=== PATIENT | female | born 1940 | race Caucasian/White ===

== ENCOUNTER 2017-04-08 12:58 | Inpatient (IN) | payer MEDICARE, OTHER ==
--- NOTE | 2017-04-08 13:00 | EDM.PDOC ---
ED HPI GENERAL MEDICAL PROBLEM - General Stated Complaint: SOB Time Seen by Provider: 04/08/17 12:58 Source of Information: Reports: Patient, Family (PV) History Limitations: Reports: Altered Mental Status, Physical Impairment - History of Present Illness INITIAL COMMENTS - FREE TEXT/NARRATIVE: 76 y.o.w f came to the with SO, PV, due to SOB. Pt received ALB inhaler at home with minimal improvement. Pt has multiple medical issues including A fib, she not on coumadine. Sedentary lifestyle. poor historian. No N/V/D. Pt is too week to ambulate. 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 (see below) (albuterol) Bilateral Feet Pain Score (Numeric/FACES): 7 - Related Data Allergies Allergy/AdvReac Type Severity Reaction Status Date / Time cephalexin Allergy Confusion Verified 04/08/17 13:05 clonidine Allergy Nausea Verified 04/08/17 13:05 diclofenac [From Voltaren] Allergy Paralysis Verified 04/08/17 13:05 naproxen [From Naprosyn] Allergy Paralysis Verified 04/08/17 13:05 Home Meds: Home Meds ALPRAZolam [Xanax] 0.25 mg PO BID PRN 05/05/16 [History] Albuterol [Ventolin HFA] 2 puff IH Q4H PRN 05/05/16 [History] Diazepam [Valium] 5 mg PO BEDTIME 05/05/16 [History] Hydroxychloroquine Sulfate [Plaquenil] 200 mg PO BEDTIME 05/05/16 [History] Isosorbide Mononitrate [Imdur] 60 mg PO DAILY@1000 05/05/16 [History] Lisinopril 40 mg PO DAILY 05/05/16 [History] Multivit-Min/Iron Fum/Folic AC [Qvyrf-Ohvmjze-Glcfpcwf Tablet] 1 tab PO DAILY@ 1000 05/05/16 [History] Nebivolol [Bystolic] 20 mg PO BEDTIME 05/05/16 [History] Omeprazole Magnesium [Prilosec Otc] 20 mg PO DAILY 05/05/16 [History] Sertraline [Zoloft] 25 mg PO DAILY 05/05/16 [History] predniSONE [Prednisone] 5 mg PO DAILY 05/05/16 [History] rOPINIRole [Requip] 0.25 mg PO BEDTIME 05/05/16 [History] Aspirin [Halfprin] 81 mg PO DAILY #90 tab.ec 05/07/16 [Rx] Loperamide [Imodium] 2 mg PO Q4H PRN #60 cap 05/07/16 [Rx] amLODIPine [Norvasc] 10 mg PO BEDTIME #90 tab 05/07/16 [Rx] Albuterol/Ipratropium [DuoNeb 3.0-0.5 MG/3 ML] 3 ml INH Q4HR PRN 04/08/17 [ History] Ca/D3/Mag#11/Zinc/Hot Dip Plating Supervisor/[place]/Bor [Caltrate 600+D Plus Tablet] 1 tab PO DAILY 04/08 [History] Desoximetasone [Desoximetasone] 1 applic TOP BID 04/08/17 [History] Hydrochlorothiazide 25 mg PO DAILY 04/08/17 [History] Hydrocodone/Acetaminophen [Hydrocodon-Acetaminophen 5-325] 1 tab PO Q4HR PRN [History] Hydrocortisone [Procto-Med Hc] 1 applic RECTAL BID PRN 04/08/17 [History] Menthol [Biofreeze] 118 ml TP BID 04/08/17 [History] Nystatin [Nystatin] 1 applic TOP ASDIRECTED 04/08/17 [History] Trolamine Salicylate [Aspercreme] 1 applic TP QID 04/08/17 [History] Past Medical History HEENT History: Reports: Impaired Vision, Other (See Below) Other HEENT History: 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, 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 Cardiovascular History: Reports: Afib, High Cholesterol, Hypertension, SOB on Exertion Respiratory History: Reports: Asthma, Sleep Apnea, SOB, Other (See Below) Other Respiratory History: wears c pap at night Gastrointestinal History: Reports: Hemorrhoids Genitourinary History: Reports: UTI, Recurrent 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 OB/BYN History: 3 children Musculoskeletal History: Reports: Arthritis, Osteoarthritis, RA, Other (See Below) Other Musculoskeletal History: rods in back neck all the way down her back Neurological History: Reports: Vertigo Psychiatric History: Reports: Anxiety, Depression Endocrine/Metabolic History: Reports: Osteoporosis Hematologic History: Reports: Blood Transfusion(s) Immunologic History: Reports: None Oncologic (Cancer) History: Reports: None Dermatologic History: Reports: None - Infectious Disease History Infectious Disease History: Reports: Chicken Pox, Influenza, Measles, MRSA, Pertussis (Whooping Cough), Shingles, Other (See Below) Other Infectious Disease History: MRSA in knee in 2013, DCed precautions before discharge after being there 1 1/2 months - Past Surgical History HEENT Surgical History: Reports: Adenoidectomy, Cataract Surgery, Tonsillectomy Neurological Surgical History: Reports: Other (See Below) Musculoskeletal Surgical History: Reports: Knee Replacement Social & Family History - Family History HEENT: Reports: None Cardiac: Reports: Heart Failure, Hypertension, VA Respiratory: Reports: Asthma GI: Reports: None : Reports: None OBGYN: Reports: Musculoskeletal: Reports: Arthritis, Osteoarthritis Neurological: Reports: Migraines Psychiatric: Reports: None Endocrine/Metabolic: Reports: Diabetes, type II, Hyperparathyroidism Hematologic: Reports: None Immunologic: Reports: None Dermatologic: Reports: None Oncologic: Reports: Uterine - Tobacco Use Smoking Status *Q: Former Smoker Years of Tobacco use: 3 Packs/Tins Daily: 0.2 Used Tobacco, but Quit: Yes Month Tobacco Last Used: 1976 Second Hand Smoke Exposure: No - Caffeine Use Caffeine Use: Reports: Coffee, Soda - Recreational Drug Use Recreational Drug Use: No - Living Situation & Occupation Living situation: Reports: , with Spouse ED ROS GENERAL - Review of Systems Review Of Systems: Unable To Obtain (HPI was given by her ) ED EXAM, GENERAL - Physical Exam Exam: See Below Exam Limited By: Physical Impairment General Appearance: Alert, Mild Distress, Obese Eye Exam: Bilateral Eye: Normal Inspection Ears: Normal External Exam Ear Exam: Bilateral Ear: Auricle Normal Nose: Normal Inspection Throat/Mouth: Normal Inspection, Normal Lips, No Airway Compromise Head: Atraumatic, Normocephalic Neck: Normal Inspection, Supple, Non-Tender, Full Range of Motion Respiratory/Chest: Respiratory Distress, Decreased Breath Sounds, Wheezing, Prolonged Expiration, Other (dullness to percussion left lower lung) Cardiovascular: Irregularly Irregular GI/Abdominal: Normal Bowel Sounds, Soft, Non-Tender (Female) Exam: Deferred Rectal (Female) Exam: Deferred Back Exam: Normal Inspection, Full Range of Motion Extremities: Other (left sided chronic leg edema) Neurological: Alert, CN II-XII Intact Psychiatric: Normal Affect Skin Exam: Warm, Dry, Intact, Normal Color Lymphatic: No Adenopathy EKG INTERPRETATION EKG Date: 04/08/17 Time: 14:45 Rhythm: A-Fib Rate (Beats/Min): 79 [place]: Normal P-Wave: Absent QRS: Normal ST-T: Normal QT: Normal Comparison: NA - No Prior EKG Course - Vital Signs Text/Narrative:: 76 y.o.w f came to the with SO, PV, due to SOB. Pt received ALB inhaler at home with minimal improvement. Pt has multiple medical issues including A fib, she not on coumadine. Sedentary lifestyle. poor historian. No N/V/D. Pt is too week to ambulate. No C/P BP 176/69 Pulse ox 91 % on RA pulse 76 (afib) Temp 37.1 PE: Morbid obese 76 Y.O.W.F with SOB. Poor insp effort exp wheezes, left leg edema, s/p left elbow surgery Imaging: CXR CHF, L eft pleural effusion, U/S left leg neg for DVT Labs: Pro BNP 1832 UA pos for UTI WBC 9.7 HGB 9.6 Na 140 K 3.8 BUN 22 Cr. 0.0 GFR > 60 Impression: CHF. Prolinged QTc (650), UTI, Pleural effusion (L). Sleep apnea. leg edema left leg (doppler US was neg fro DVT) Multiple medical Issues, FULL CODE. Tx: Duoneb. Lasix, Bactrim DS Reexam: Improved 4.00 pm Consultation: Dr. Bravo, Hospitalist: Accepted the pt for admission Plan: Admit to [facility]. Last Recorded V/S: Last Vital Signs Temp 36.9 C 04/08/17 23:57 Pulse 76 04/08/17 23:59 Resp 17 04/08/17 23:57 BP 152/87 H 04/08/17 23:57 Pulse Ox 96 04/08/17 23:59 - Orders/Labs/Meds Orders: Active Orders 24 hr Category Date Time Status Cardiac Education [RC] Click to Edit Care 04/08/17 17:27 Active Cardiac Monitoring [RC] 08,16,00 Care 04/08/17 16:07 Active Communication Order [RC] ASDIRECTED Care 04/08/17 17:27 Active Height and Weight [RC] 06 Care 04/08/17 17:26 Active Intake and Output [RC] 04,08,12,16,20,00 Care 04/08/17 15:58 Active Notify Provider [RC] PRN Care 04/08/17 17:27 Active Oxygen Therapy [RC] PRN Care 04/08/17 15:55 Active Pulse Oximetry [RC] PRN Care 04/08/17 15:58 Active RT Aerosol Therapy [RC] ASDIRECTED Care 04/08/17 14:27 Active RT Incentive Spirometry [RC] Q2HWA Care 04/08/17 17:26 Active Up With Assistance [RC] ASDIRECTED Care 04/08/17 15:55 Active Vital Signs [RC] 04,08,12,16,20,00 Care 04/08/17 15:55 Active OT Evaluation and Treatment [CONS] Routine Cons 04/08/17 17:26 Active PT Evaluation and Treatment [CONS] Routine Cons 04/08/17 15:55 Active 2 Gram Sodium Diet [DIET] Diet 04/08/17 Breakfast Active Fluid Restriction [DIET] Diet 04/08/17 Dinner Active Heart Healthy Diet [DIET] Diet 04/08/17 Breakfast Ordered Chest 1V Frontal [CR] Stat Exams 04/08/17 15:38 Taken VL Duplex Lwr Ext Veins Ltd Lt [US] Stat Exams 04/08/17 13:35 Taken BASIC METABOLIC PANEL,BMP [CHEM] AM Lab 04/09/17 05:11 Ordered CULTURE URINE [RM] Stat Lab 04/08/17 13:55 Received ALPRAZolam [Xanax] Med 04/08/17 17:43 Active 0.25 mg PO BID PRN Acetaminophen/HYDROcodone [[place] 325-5 MG] Med 04/08/17 17:43 Active 1 tab PO Q4H PRN Albuterol/Ipratropium [DuoNeb 3.0-0.5 MG/3 ML] Med 04/08/17 21:00 Active 3 ml NEB QIDRT Aspirin [Halfprin] Med 04/09/17 09:00 Active 81 mg PO DAILY Diazepam [Valium] Med 04/08/17 21:00 Active 5 mg PO BEDTIME Docusate Sodium [Colace] Med 04/08/17 15:55 Active 100 mg PO BID PRN Furosemide [Lasix] Med 04/09/17 05:00 Active 40 mg IVPUSH Q12H Hydrochlorothiazide Med 04/09/17 09:00 Active 25 mg PO DAILY Hydroxychloroquine [Plaquenil] Med 04/08/17 21:00 Active 200 mg PO BEDTIME Isosorbide Mononitrate [Imdur] Med 04/09/17 10:00 Active 60 mg PO DAILY@1000 Lisinopril [Prinivil] Med 04/09/17 09:00 Active 40 mg PO DAILY Nebivolol [Bystolic] Med 04/08/17 21:00 Active 20 mg PO BEDTIME Nystatin [Nystop] Med 04/08/17 17:45 Active 0 gm TOP ASDIRECTED Sertraline [Zoloft] Med 04/09/17 09:00 Active 25 mg PO DAILY Sodium Chloride 0.9% [Saline Flush] Med 04/08/17 15:55 Active 10 ml FLUSH ASDIRECTED PRN Sodium Chloride 0.9% [Saline Flush] Med 04/08/17 16:00 Active 10 ml FLUSH ASDIRECTED PRN Sulfamethoxazole/Trimethoprim [Septra DS] Med 04/09/17 09:00 Active 1 tab PO BID amLODIPine [Norvasc] Med 04/08/17 21:00 Active 10 mg PO BEDTIME methylPREDNISolone Sod Succ [Solu-MEDROL] Med 04/08/17 17:30 Active 62.5 mg IV Q6H Antiembolic Hose [OM.PC] Per Unit Routine Oth 04/08/17 17:36 Ordered Blood Culture x2 Reflex Set [OM.PC] Urgent Oth 04/08/17 17:27 Ordered Peripheral IV Insertion Adult [OM.PC] Routine Oth 04/08/17 15:55 Ordered Saline Lock Insert [OM.PC] Routine Oth 04/08/17 16:00 Ordered Resuscitation Status Routine Resus Stat 04/08/17 15:55 Ordered EKG 12 Lead [EK] Routine Ther 04/08/17 14:35 Ordered Medication Orders Hydrocodone Bitart/Acetaminophen ([place] 325-5 Mg) 1 tab PO Q4H PRN PRN Reason: Pain Albuterol/Ipratropium (Duoneb 3.0-0.5 Mg/3 Ml) 3 ml NEB QIDRT [facility] Last Admin: 04/08/17 20:50 Dose: 3 ml Alprazolam (Xanax) 0.25 mg PO BID PRN PRN Reason: Anxiety Amlodipine Besylate (Norvasc) 10 mg PO BEDTIME [facility] Last Admin: 04/08/17 20:59 Dose: 10 mg Aspirin (Halfprin) 81 mg PO DAILY [facility] Diazepam (Valium.) 5 mg PO BEDTIME [facility] Last Admin: 04/08/17 20:50 Dose: 5 mg Docusate Sodium (Colace) 100 mg PO BID PRN PRN Reason: Constipation Furosemide (Lasix) 40 mg IVPUSH Q12H [facility] Hydrochlorothiazide (Hydrochlorothiazide) 25 mg PO DAILY [facility] Hydroxychloroquine Sulfate (Plaquenil) 200 mg PO BEDTIME [facility] Last Admin: 04/08/17 21:30 Dose: 200 mg Isosorbide Mononitrate (Imdur) 60 mg PO DAILY@1000 [facility] Lisinopril (Prinivil) 40 mg PO DAILY [facility] Methylprednisolone Sodium Succinate (Solu-Medrol) 62.5 mg IV Q6H [facility] Last Admin: 04/09/17 00:21 Dose: 62.5 mg Admin: 04/08/17 18:56 Dose: 62.5 mg Nebivolol (Bystolic) 20 mg PO BEDTIME [facility] Last Admin: 04/08/17 21:29 Dose: 20 mg Nystatin (Nystop) 0 gm TOP ASDIRECTED [facility] Sertraline HCl (Zoloft) 25 mg PO DAILY [facility] Sodium Chloride (Saline Flush) 10 ml FLUSH ASDIRECTED PRN PRN Reason: Keep Vein Open Last Admin: 04/08/17 19:01 Dose: 10 ml Admin: 04/08/17 16:58 Dose: 10 ml Admin: 04/08/17 16:01 Dose: 10 ml Sodium Chloride (Saline Flush) 10 ml FLUSH ASDIRECTED PRN PRN Reason: Keep Vein Open Last Admin: 04/09/17 00:21 Dose: 10 ml Trimethoprim/Sulfamethoxazole (Septra Ds) 1 tab PO BID [facility] Labs: Laboratory Tests 04/08/17 04/08/17 04/08/17 Range/Units 13:30 13:30 13:30 WBC 9.4 (4.5-12.0) X10-3/uL RBC 4.27 (3.23-5.20) x10(6)uL Hgb 9.7 L (11.5-15.5) g/dL Hct 31.4 (30.0-51.3) % MCV 73.4 L (80-96) fL MCH 22.6 L (27.7-33.6) pg MCHC 30.8 L (32.2-35.4) g/dL RDW 16.1 H (11.5-15.5) % Plt Count 238 (125-369) X10(3)uL MPV 7.6 (7.4-10.4) fL Add Manual Diff Yes Neutrophils % (Manual) 87 H (46-82) % Lymphocytes % (Manual) 6 L (13-37) % Monocytes % (Manual) 7 (4-12) % Hypochromasia Few Anisocytosis Few Microcytosis Moderate H PT 11.4 H (8.7-11.1) INR 1.13 (0.89-1.13) Sodium 140 (135-145) mmol/L Potassium 3.8 (3.5-5.3) mmol/L Chloride 102 (100-110) mmol/L Carbon Dioxide 29 (21-32) mmol/L BUN 22 H (7-18) mg/dL Creatinine 0.7 (0.55-1.02) mg/dL Est Cr Clr Drug Dosing 55.68 mL/min Estimated GFR (MDRD) > 60 (>60) BUN/Creatinine Ratio 31.4 H (9-20) Glucose 158 H (80-116) mg/dL Calcium 9.6 (8.6-10.2) mg/dL Creatine Kinase (60-160) IU/L Troponin I (<0.017-0.056) ng/mL NT-Pro-B Natriuret Pep (<=450) pg/mL Urine Color (YELLOW) Urine Appearance (CLEAR) Urine pH (5.0-6.5) Ur Specific [place] (1.010-1.025) Urine Protein (NEGATIVE) mg/dL Urine Glucose (UA) (NEGATIVE) mg/dL Urine Ketones (NEGATIVE) mg/dL Urine Occult Blood (NEGATIVE) Urine Nitrite (NEGATIVE) Urine Bilirubin (NEGATIVE) Urine Urobilinogen (NEGATIVE) mg/dL Ur Leukocyte Esterase (NEGATIVE) Urine RBC (0) Urine WBC (0) Ur Squamous Epith Cells (NS,R,O) Amorphous Sediment Urine Bacteria (NS) 04/08/17 04/08/17 04/08/17 Range/Units 13:30 13:30 13:30 WBC (4.5-12.0) X10-3/uL RBC (3.23-5.20) x10(6)uL Hgb (11.5-15.5) g/dL Hct (30.0-51.3) % MCV (80-96) fL MCH (27.7-33.6) pg MCHC (32.2-35.4) g/dL RDW (11.5-15.5) % Plt Count (125-369) X10(3)uL MPV (7.4-10.4) fL Add Manual Diff Neutrophils % (Manual) (46-82) % Lymphocytes % (Manual) (13-37) % Monocytes % (Manual) (4-12) % Hypochromasia Anisocytosis Microcytosis PT (8.7-11.1) INR (0.89-1.13) Sodium (135-145) mmol/L Potassium (3.5-5.3) mmol/L Chloride (100-110) mmol/L Carbon Dioxide (21-32) mmol/L BUN (7-18) mg/dL Creatinine (0.55-1.02) mg/dL Est Cr Clr Drug Dosing mL/min Estimated GFR (MDRD) (>60) BUN/Creatinine Ratio (9-20) Glucose (80-116) mg/dL Calcium (8.6-10.2) mg/dL Creatine Kinase 46 L (60-160) IU/L Troponin I < 0.017 L (<0.017-0.056) ng/mL NT-Pro-B Natriuret Pep 1859 H* (<=450) pg/mL Urine Color (YELLOW) Urine Appearance (CLEAR) Urine pH (5.0-6.5) Ur Specific [place] (1.010-1.025) Urine Protein (NEGATIVE) mg/dL Urine Glucose (UA) (NEGATIVE) mg/dL Urine Ketones (NEGATIVE) mg/dL Urine Occult Blood (NEGATIVE) Urine Nitrite (NEGATIVE) Urine Bilirubin (NEGATIVE) Urine Urobilinogen (NEGATIVE) mg/dL Ur Leukocyte Esterase (NEGATIVE) Urine RBC (0) Urine WBC (0) Ur Squamous Epith Cells (NS,R,O) Amorphous Sediment Urine Bacteria (NS) 04/08/17 Range/Units 13:55 WBC (4.5-12.0) X10-3/uL RBC (3.23-5.20) x10(6)uL Hgb (11.5-15.5) g/dL Hct (30.0-51.3) % MCV (80-96) fL MCH (27.7-33.6) pg MCHC (32.2-35.4) g/dL RDW (11.5-15.5) % Plt Count (125-369) X10(3)uL MPV (7.4-10.4) fL Add Manual Diff Neutrophils % (Manual) (46-82) % Lymphocytes % (Manual) (13-37) % Monocytes % (Manual) (4-12) % Hypochromasia Anisocytosis Microcytosis PT (8.7-11.1) INR (0.89-1.13) Sodium (135-145) mmol/L Potassium (3.5-5.3) mmol/L Chloride (100-110) mmol/L Carbon Dioxide (21-32) mmol/L BUN (7-18) mg/dL Creatinine (0.55-1.02) mg/dL Est Cr Clr Drug Dosing mL/min Estimated GFR (MDRD) (>60) BUN/Creatinine Ratio (9-20) Glucose (80-116) mg/dL Calcium (8.6-10.2) mg/dL Creatine Kinase (60-160) IU/L Troponin I (<0.017-0.056) ng/mL NT-Pro-B Natriuret Pep (<=450) pg/mL Urine Color Yellow (YELLOW) Urine Appearance Clear (CLEAR) Urine pH 6.0 (5.0-6.5) Ur Specific [place] 1.015 (1.010-1.025) Urine Protein Negative (NEGATIVE) mg/dL Urine Glucose (UA) Normal (NEGATIVE) mg/dL Urine Ketones Negative (NEGATIVE) mg/dL Urine Occult Blood Negative (NEGATIVE) Urine Nitrite Negative (NEGATIVE) Urine Bilirubin Negative (NEGATIVE) Urine Urobilinogen Normal (NEGATIVE) mg/dL Ur Leukocyte Esterase Moderate H (NEGATIVE) Urine RBC 0-5 (0) Urine WBC 5-10 (0) Ur Squamous Epith Cells Few H (NS,R,O) Amorphous Sediment Moderate Urine Bacteria Moderate H (NS) Meds: Medications Generic Name Dose Route Start Last Admin Trade Name Freq PRN Reason Stop Dose Admin Hydrocodone Bitart/Acetaminophen 1 tab 04/08/17 17:43 [place] 325-5 Mg PO Q4H PRN Pain Albuterol/Ipratropium 3 ml 04/08/17 21:00 04/08/17 20:50 Duoneb 3.0-0.5 Mg/3 Ml NEB 3 ml QIDRT [facility] Administration Alprazolam 0.25 mg 04/08/17 17:43 Xanax PO BID PRN Anxiety Amlodipine Besylate 10 mg 04/08/17 21:00 04/08/17 20:59 Norvasc PO 10 mg BEDTIME [facility] Administration Aspirin 81 mg 04/09/17 09:00 Halfprin PO DAILY [facility] Diazepam 5 mg 04/08/17 21:00 04/08/17 20:50 Valium. PO 5 mg BEDTIME [facility] Administration Docusate Sodium 100 mg 04/08/17 15:55 Colace PO BID PRN Constipation Furosemide 40 mg 04/09/17 05:00 Lasix IVPUSH Q12H [facility] Hydrochlorothiazide 25 mg 04/09/17 09:00 Hydrochlorothiazide PO DAILY [facility] Hydroxychloroquine Sulfate 200 mg 04/08/17 21:00 04/08/17 21:30 Plaquenil PO 200 mg BEDTIME [facility] Administration Isosorbide Mononitrate 60 mg 04/09/17 10:00 Imdur PO DAILY@1000 [facility] Lisinopril 40 mg 04/09/17 09:00 Prinivil PO DAILY [facility] Methylprednisolone Sodium Succinate 62.5 mg 04/08/17 17:30 04/09/17 00:21 Solu-Medrol IV 62.5 mg Q6H [facility] Administration Nebivolol 20 mg 04/08/17 21:00 04/08/17 21:29 Bystolic PO 20 mg BEDTIME [facility] Administration Nystatin 0 gm 04/08/17 17:45 Nystop TOP ASDIRECTED [facility] Sertraline HCl 25 mg 04/09/17 09:00 Zoloft PO DAILY [facility] Sodium Chloride 10 ml 04/08/17 16:00 04/08/17 19:01 Saline Flush FLUSH 10 ml ASDIRECTED PRN Administration Keep Vein Open Sodium Chloride 10 ml 04/08/17 15:55 04/09/17 00:21 Saline Flush FLUSH 10 ml ASDIRECTED PRN Administration Keep Vein Open Trimethoprim/Sulfamethoxazole 1 tab 04/09/17 09:00 Septra Ds PO BID [facility] Discontinued Medications Generic Name Dose Route Start Last Admin Trade Name Freq PRN Reason Stop Dose Admin Albuterol/Ipratropium 3 ml 04/08/17 14:27 04/08/17 14:37 Duoneb 3.0-0.5 Mg/3 Ml NEB 04/08/17 14:28 3 ml ONETIME ONE Administration Furosemide 20 mg 04/08/17 16:02 04/08/17 16:53 Lasix IVPUSH 04/08/17 16:03 20 mg ONETIME ONE Administration Levofloxacin 500 mg 04/08/17 14:45 04/08/17 14:52 Levaquin PO 04/08/17 14:46 Not Given ONETIME STA Methylprednisolone Sodium Succinate Confirm 04/08/17 18:52 Solu-Medrol Administered 04/08/17 18:53 Dose 40 mg .ROUTE .STK-MED ONE Ondansetron HCl 4 mg 04/08/17 15:55 Zofran IV Q4H PRN Nausea/Vomiting Trimethoprim/Sulfamethoxazole 1 tab 04/08/17 14:49 04/08/17 14:53 Septra Ds PO 04/08/17 14:50 1 tab ONETIME ONE Administration Departure - Departure Time of Disposition: 17:00 Disposition: Refer to Observation Condition: Fair Clinical Impression: CHF (congestive heart failure) Qualifiers: Congestive heart failure chronicity: acute on chronic - Discharge Information - My Orders Last 24 Hours: My Active Orders 04/08/17 13:35 VL Duplex Lwr Ext Veins Ltd Lt [US] Stat 04/08/17 13:55 CULTURE URINE [RM] Stat 04/08/17 14:27 RT Aerosol Therapy [RC] ASDIRECTED 04/08/17 14:35 EKG 12 Lead [EK] Routine 04/08/17 15:38 Chest 1V Frontal [CR] Stat 04/08/17 15:55 Oxygen Therapy [RC] PRN Up With Assistance [RC] ASDIRECTED Vital Signs [RC] 04,08,12,16,20,00 PT Evaluation and Treatment [CONS] Routine Docusate Sodium [Colace] 100 mg PO BID PRN Sodium Chloride 0.9% [Saline Flush] 10 ml FLUSH ASDIRECTED PRN Peripheral IV Insertion Adult [OM.PC] Routine Resuscitation Status Routine 04/08/17 15:58 Intake and Output [RC] 04,08,12,16,20,00 Pulse Oximetry [RC] PRN 04/08/17 16:00 Sodium Chloride 0.9% [Saline Flush] 10 ml FLUSH ASDIRECTED PRN Saline Lock Insert [OM.PC] Routine 04/08/17 16:07 Cardiac Monitoring [RC] 08,16,00 04/08/17 Breakfast Heart Healthy Diet [DIET] - Assessment/Plan Last 24 Hours: My Active Orders 04/08/17 13:35 VL Duplex Lwr Ext Veins Ltd Lt [US] Stat 04/08/17 13:55 CULTURE URINE [RM] Stat 04/08/17 14:27 RT Aerosol Therapy [RC] ASDIRECTED 04/08/17 14:35 EKG 12 Lead [EK] Routine 04/08/17 15:38 Chest 1V Frontal [CR] Stat 04/08/17 15:55 Oxygen Therapy [RC] PRN Up With Assistance [RC] ASDIRECTED Vital Signs [RC] 04,08,12,16,20,00 PT Evaluation and Treatment [CONS] Routine Docusate Sodium [Colace] 100 mg PO BID PRN Sodium Chloride 0.9% [Saline Flush] 10 ml FLUSH ASDIRECTED PRN Peripheral IV Insertion Adult [OM.PC] Routine Resuscitation Status Routine 04/08/17 15:58 Intake and Output [RC] 04,08,12,16,20,00 Pulse Oximetry [RC] PRN 04/08/17 16:00 Sodium Chloride 0.9% [Saline Flush] 10 ml FLUSH ASDIRECTED PRN Saline Lock Insert [OM.PC] Routine 04/08/17 16:07 Cardiac Monitoring [RC] 08,16,04/08/17 Breakfast Heart Healthy Diet [DIET]
[2017-04-08] MEDS ORDERED: Albuterol/Ipratropium 3.0-0.5 MG/3 ML Neb Soln NEB ONE (14:27)
[2017-04-08] MEDS ORDERED: Levofloxacin 250 MG Tab PO STA (14:45)
[2017-04-08] MEDS ORDERED: Sulfamethoxazole/Trimethoprim 800-160 MG Tab PO ONE (14:49)
[2017-04-08] MEDS ORDERED: Sodium Chloride 0.9% 10 ML Syringe FLUSH PRN (15:55)
[2017-04-08] MEDS ORDERED: Ondansetron 4 MG/2 ML SDV IV PRN (15:55)
[2017-04-08] MEDS ORDERED: Docusate Sodium 100 MG Cap PO PRN (15:55)
[2017-04-08] MEDS: Sodium Chloride 0.9% 10 ML Syringe FLUSH PRN ×3 (16:01→19:01)
[2017-04-08] MEDS ORDERED: Furosemide 20 MG/2 ML VIAL IVPUSH ONE (16:02)
[2017-04-08] MEDS ORDERED: ALPRAZolam 0.25 MG Tab PO PRN (17:43)
[2017-04-08] MEDS ORDERED: Acetaminophen/HYDROcodone 325-5 MG Tab PO PRN (17:43)
[2017-04-08] MEDS ORDERED: Nystatin Topical Powder 15 GM Bottle TOP SCH (17:45)
--- NOTE | 2017-04-08 17:57 | PCM.HP ---
H&P History of Present Illness - General Date of Service: 04/08/17 Admit Problem/Dx: Admission Diagnosis/Problem Admission Diagnosis/Problem CHF, Congestive heart failure - History of Present Illness Initial Comments - Free Text/Narative: 76-year-old female with multiple comorbidities having increasing dyspnea and shortness of breath at rest along with wheezing for the last 5 days. She tried using her inhalers and nebulizer she does have asthma as well as combined severe COPD but this did not help. She uses CPAP at night but is not on chronic O2 therapy. She is chronically on low-dose prednisone 5 mg daily. She has not been treated outpatient but she has received her influenza vaccination. She has atrial fibrillation and congestive heart failure and has noted some increase in lower extremity edema. She denies any fevers or chills, no sputum production or cough. She's not had any chest pain or pressure no shoulder or neck or jaw pain. She denies any palpitations headache or lightheadedness. She denies any nasal congestion sore throat or joint swelling. She's not had any nausea or vomiting denies abdominal pain, constipation or diarrhea. She denies any dysuria or hematuria but does have incontinence. Denies any foul odor to urine or discoloration. Denies any decreased urination. Denies flank pain. She does have skin knees chronically treated with nystatin powder under both breasts and inguinal folds. Denies any breaks in skin or falls. She does have some underlying cognitive impairment and relies on her to keep track of her medications dosing and timing. I have seen her in the past and taking care of her in the clinic therefore her history comes from her, past medical records along with . Bilateral Feet Pain Score (Numeric/FACES): 7 - Related Data Allergies/Adverse Reactions: Allergies Allergy/AdvReac Type Severity Reaction Status Date / Time cephalexin Allergy Confusion Verified 04/08/17 13:05 clonidine Allergy Nausea Verified 04/08/17 13:05 diclofenac [From Voltaren] Allergy Paralysis Verified 04/08/17 13:05 naproxen [From Naprosyn] Allergy Paralysis Verified 04/08/17 13:05 Home Medications: Home Meds ALPRAZolam [Xanax] 0.25 mg PO BID PRN 05/05/16 [History] Albuterol [Ventolin HFA] 2 puff IH Q4H PRN 05/05/16 [History] Diazepam [Valium] 5 mg PO BEDTIME 05/05/16 [History] Hydroxychloroquine Sulfate [Plaquenil] 200 mg PO BEDTIME 05/05/16 [History] Isosorbide Mononitrate [Imdur] 60 mg PO DAILY@1000 05/05/16 [History] Lisinopril 40 mg PO DAILY 05/05/16 [History] Multivit-Min/Iron Fum/Folic AC [Ywzvv-Oreclgx-Slrwygay Tablet] 1 tab PO DAILY@ 1000 05/05/16 [History] Nebivolol [Bystolic] 20 mg PO BEDTIME 05/05/16 [History] Omeprazole Magnesium [Prilosec Otc] 20 mg PO DAILY 05/05/16 [History] Sertraline [Zoloft] 25 mg PO DAILY 05/05/16 [History] predniSONE [Prednisone] 5 mg PO DAILY 05/05/16 [History] rOPINIRole [Requip] 0.25 mg PO BEDTIME 05/05/16 [History] Aspirin [Halfprin] 81 mg PO DAILY #90 tab.ec 05/07/16 [Rx] Loperamide [Imodium] 2 mg PO Q4H PRN #60 cap 05/07/16 [Rx] amLODIPine [Norvasc] 10 mg PO BEDTIME #90 tab 05/07/16 [Rx] Albuterol/Ipratropium [DuoNeb 3.0-0.5 MG/3 ML] 3 ml INH Q4HR PRN 04/08/17 [ History] Ca/D3/Mag#11/Zinc/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[place]/Bor [Caltrate 600+D Plus Tablet] 1 tab PO DAILY 04/08 [History] Desoximetasone [Desoximetasone] 1 applic TOP BID 04/08/17 [History] Hydrochlorothiazide 25 mg PO DAILY 04/08/17 [History] Hydrocodone/Acetaminophen [Hydrocodon-Acetaminophen 5-325] 1 tab PO Q4HR PRN [History] Hydrocortisone [Procto-Med Hc] 1 applic RECTAL BID PRN 04/08/17 [History] Menthol [Biofreeze] 118 ml TP BID 04/08/17 [History] Nystatin [Nystatin] 1 applic TOP ASDIRECTED 04/08/17 [History] Trolamine Salicylate [Aspercreme] 1 applic TP QID 04/08/17 [History] Past Medical History HEENT History: Reports: Impaired Vision, Other (See Below) Other HEENT History: 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, 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 Cardiovascular History: Reports: Afib, High Cholesterol, Hypertension, SOB on Exertion Respiratory History: Reports: Asthma, Sleep Apnea, SOB, Other (See Below) Other Respiratory History: wears c pap at night Gastrointestinal History: Reports: Hemorrhoids Genitourinary History: Reports: UTI, Recurrent 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 OB/BYN History: 3 children Musculoskeletal History: Reports: Arthritis, Osteoarthritis, RA, Other (See Below) Other Musculoskeletal History: rods in back neck all the way down her back Neurological History: Reports: Vertigo Psychiatric History: Reports: Anxiety, Depression Endocrine/Metabolic History: Reports: Osteoporosis Hematologic History: Reports: Blood Transfusion(s) Immunologic History: Reports: None Oncologic (Cancer) History: Reports: None Dermatologic History: Reports: None - Infectious Disease History Infectious Disease History: Reports: Chicken Pox, Influenza, Measles, MRSA, Pertussis (Whooping Cough), Shingles, Other (See Below) Other Infectious Disease History: MRSA in knee in 2013, DCed precautions before discharge after being there 1 1/2 months - Past Surgical History HEENT Surgical History: Reports: Adenoidectomy, Cataract Surgery, Tonsillectomy Neurological Surgical History: Reports: Other (See Below) Musculoskeletal Surgical History: Reports: Knee Replacement Social & Family History - Family History Family Medical History: Noncontributory HEENT: Reports: None Cardiac: Reports: Heart Failure, Hypertension, [place] Respiratory: Reports: Asthma GI: Reports: None : Reports: None OBGYN: Reports: Musculoskeletal: Reports: Arthritis, Osteoarthritis Neurological: Reports: Migraines Psychiatric: Reports: None Endocrine/Metabolic: Reports: Diabetes, type II, Hyperparathyroidism Hematologic: Reports: None Immunologic: Reports: None Dermatologic: Reports: None Oncologic: Reports: Uterine - Tobacco Use Smoking Status *Q: Former Smoker Years of Tobacco use: 3 Packs/Tins Daily: 0.2 Used Tobacco, but Quit: Yes Month Tobacco Last Used: 1976 Second Hand Smoke Exposure: No - Caffeine Use Caffeine Use: Reports: Coffee, Soda Other Caffeine Use: a little - Recreational Drug Use Recreational Drug Use: No - Living Situation & Occupation Living situation: Reports: , with Spouse H&P Review of Systems - Review of Systems: Review Of Systems: ROS reveals no pertinent complaints other than HPI. Exam - Exam Exam: See Below - Vital Signs Vital Signs: Last Vital Signs Temp 98.3 F 04/08/17 16:15 Pulse 75 04/08/17 16:15 Resp 18 04/08/17 16:15 BP 176/96 H 04/08/17 16:15 Pulse Ox 91 L 04/08/17 16:15 Weight: 89.176 kg - Exam General: Alert, Oriented, Cooperative HEENT: Conjunctiva Clear, Hearing Intact, Mucosa Moist & [place] Neck: Trachea Midline. No: JVD Lungs: Normal Respiratory Effort, Decreased Breath Sounds (Left lower lobe), Rales (Bilateral lower lobes), Wheezing (Expiratory central) Cardiovascular: Regular Rate, Irregular Rhythm, Other (At this time unable to appreciate any significant murmurs) GI/Abdominal Exam: Normal Bowel Sounds, Soft, Non-Tender, Hernia (Small 1 cm umbilical hernia nonincarcerated also left abdominal wall diastases roughly 3 cm x 3 cm palpable.) (Female) Exam: Normal External Exam Extremities: Other (She has lower extremity edema at the knees roughly 1+ bilateral and symmetric. She has numerous skin discoloration secondary to minocycline in the past. No active joint redness tenderness or swelling. There is no calf tenderness negative Homans. Capillary refill less than 2 seconds bilateral. No focal deficits neurologically.) Neuro Extensive - Mental Status: Normal Mood/Affect Psychiatric: Anxious (Minimal anxiety) - Patient Data Lab Results Last 24 hrs: Laboratory Tests 04/08/17 04/08/17 04/08/17 Range/Units 13:30 13:30 13:30 WBC 9.4 (4.5-12.0) X10-3/uL RBC 4.27 (3.23-5.20) x10(6)uL Hgb 9.7 L (11.5-15.5) g/dL Hct 31.4 (30.0-51.3) % MCV 73.4 L (80-96) fL MCH 22.6 L (27.7-33.6) pg MCHC 30.8 L (32.2-35.4) g/dL RDW 16.1 H (11.5-15.5) % Plt Count 238 (125-369) X10(3)uL MPV 7.6 (7.4-10.4) fL Add Manual Diff Yes Neutrophils % (Manual) 87 H (46-82) % Lymphocytes % (Manual) 6 L (13-37) % Monocytes % (Manual) 7 (4-12) % Hypochromasia Few Anisocytosis Few Microcytosis Moderate H PT 11.4 H (8.7-11.1) INR 1.13 (0.89-1.13) Sodium 140 (135-145) mmol/L Potassium 3.8 (3.5-5.3) mmol/L Chloride 102 (100-110) mmol/L Carbon Dioxide 29 (21-32) mmol/L BUN 22 H (7-18) mg/dL Creatinine 0.7 (0.55-1.02) mg/dL Est Cr Clr Drug Dosing 55.68 mL/min Estimated GFR (MDRD) > 60 (>60) BUN/Creatinine Ratio 31.4 H (9-20) Glucose 158 H (80-116) mg/dL Calcium 9.6 (8.6-10.2) mg/dL Creatine Kinase (60-160) IU/L Troponin I (<0.017-0.056) ng/mL NT-Pro-B Natriuret Pep (<=450) pg/mL Urine Color (YELLOW) Urine Appearance (CLEAR) Urine pH (5.0-6.5) Ur Specific Moran (1.010-1.025) Urine Protein (NEGATIVE) mg/dL Urine Glucose (UA) (NEGATIVE) mg/dL Urine Ketones (NEGATIVE) mg/dL Urine Occult Blood (NEGATIVE) Urine Nitrite (NEGATIVE) Urine Bilirubin (NEGATIVE) Urine Urobilinogen (NEGATIVE) mg/dL Ur Leukocyte Esterase (NEGATIVE) Urine RBC (0) Urine WBC (0) Ur Squamous Epith Cells (NS,R,O) Amorphous Sediment Urine Bacteria (NS) 04/08/17 04/08/17 04/08/17 Range/Units 13:30 13:30 13:30 WBC (4.5-12.0) X10-3/uL RBC (3.23-5.20) x10(6)uL Hgb (11.5-15.5) g/dL Hct (30.0-51.3) % MCV (80-96) fL MCH (27.7-33.6) pg MCHC (32.2-35.4) g/dL RDW (11.5-15.5) % Plt Count (125-369) X10(3)uL MPV (7.4-10.4) fL Add Manual Diff Neutrophils % (Manual) (46-82) % Lymphocytes % (Manual) (13-37) % Monocytes % (Manual) (4-12) % Hypochromasia Anisocytosis Microcytosis PT (8.7-11.1) INR (0.89-1.13) Sodium (135-145) mmol/L Potassium (3.5-5.3) mmol/L Chloride (100-110) mmol/L Carbon Dioxide (21-32) mmol/L BUN (7-18) mg/dL Creatinine (0.55-1.02) mg/dL Est Cr Clr Drug Dosing mL/min Estimated GFR (MDRD) (>60) BUN/Creatinine Ratio (9-20) Glucose (80-116) mg/dL Calcium (8.6-10.2) mg/dL Creatine Kinase 46 L (60-160) IU/L Troponin I < 0.017 L (<0.017-0.056) ng/mL NT-Pro-B Natriuret Pep 1859 H* (<=450) pg/mL Urine Color (YELLOW) Urine Appearance (CLEAR) Urine pH (5.0-6.5) Ur Specific Moran (1.010-1.025) Urine Protein (NEGATIVE) mg/dL Urine Glucose (UA) (NEGATIVE) mg/dL Urine Ketones (NEGATIVE) mg/dL Urine Occult Blood (NEGATIVE) Urine Nitrite (NEGATIVE) Urine Bilirubin (NEGATIVE) Urine Urobilinogen (NEGATIVE) mg/dL Ur Leukocyte Esterase (NEGATIVE) Urine RBC (0) Urine WBC (0) Ur Squamous Epith Cells (NS,R,O) Amorphous Sediment Urine Bacteria (NS) 04/08/17 Range/Units 13:55 WBC (4.5-12.0) X10-3/uL RBC (3.23-5.20) x10(6)uL Hgb (11.5-15.5) g/dL Hct (30.0-51.3) % MCV (80-96) fL MCH (27.7-33.6) pg MCHC (32.2-35.4) g/dL RDW (11.5-15.5) % Plt Count (125-369) X10(3)uL MPV (7.4-10.4) fL Add Manual Diff Neutrophils % (Manual) (46-82) % Lymphocytes % (Manual) (13-37) % Monocytes % (Manual) (4-12) % Hypochromasia Anisocytosis Microcytosis PT (8.7-11.1) INR (0.89-1.13) Sodium (135-145) mmol/L Potassium (3.5-5.3) mmol/L Chloride (100-110) mmol/L Carbon Dioxide (21-32) mmol/L BUN (7-18) mg/dL Creatinine (0.55-1.02) mg/dL Est Cr Clr Drug Dosing mL/min Estimated GFR (MDRD) (>60) BUN/Creatinine Ratio (9-20) Glucose (80-116) mg/dL Calcium (8.6-10.2) mg/dL Creatine Kinase (60-160) IU/L Troponin I (<0.017-0.056) ng/mL NT-Pro-B Natriuret Pep (<=450) pg/mL Urine Color Yellow (YELLOW) Urine Appearance Clear (CLEAR) Urine pH 6.0 (5.0-6.5) Ur Specific Moran 1.015 (1.010-1.025) Urine Protein Negative (NEGATIVE) mg/dL Urine Glucose (UA) Normal (NEGATIVE) mg/dL Urine Ketones Negative (NEGATIVE) mg/dL Urine Occult Blood Negative (NEGATIVE) Urine Nitrite Negative (NEGATIVE) Urine Bilirubin Negative (NEGATIVE) Urine Urobilinogen Normal (NEGATIVE) mg/dL Ur Leukocyte Esterase Moderate H (NEGATIVE) Urine RBC 0-5 (0) Urine WBC 5-10 (0) Ur Squamous Epith Cells Few H (NS,R,O) Amorphous Sediment Moderate Urine Bacteria Moderate H (NS) Result Diagrams: 04/08/17 13:30 04/08/17 13:30 Imaging Impressions Last 24 hrs: Chest x-ray does show left lower lobe effusion when compared to prior. She does have increase cephalization do not notice any focal infiltrate however official radiologic read is pending. No clinical signs of pneumonia at this time. EKG INTERPRETATION EKG Date: 04/08/17 Rhythm: A-Fib QRS: Normal ST-T: Normal QT: Prolonged Comparison: No Change *Q Meaningful Use (ADM) - VTE *Q VTE Criteria *Q: VTE Pharmacological Contraindications *Q: Risk of Bleeding - Stroke *Q Stroke Criteria *Q: - AMI *Q AMI Criteria *Q: - Problem List (1) Acute on chronic congestive heart failure SNOMED Code(s): 30454595 ICD Code: I50.9 - HEART FAILURE, UNSPECIFIED Status: Acute Current Visit : Yes Qualifiers: Congestive heart failure type: unspecified congestive heart failure type Qualified Code(s): I50.9 - Heart failure, unspecified (2) Pleural effusion, left SNOMED Code(s): 58172183 ICD Code: J90 - PLEURAL EFFUSION, NOT ELSEWHERE CLASSIFIED Status: Acute Current Visit: Yes (3) COPD with exacerbation SNOMED Code(s): 102990261967667 ICD Code: J44.1 - CHRONIC OBSTRUCTIVE PULMONARY DISEASE W (ACUTE) EXACERBATION Status: Acute Current Visit: Yes (4) UTI (urinary tract infection), bacterial SNOMED Code(s): 431585286 ICD Code: N39.0 - URINARY TRACT INFECTION, SITE NOT SPECIFIED; A49.9 - BACTERIAL INFECTION, UNSPECIFIED Status: Acute Priority: High Current Visit: Yes (5) Atrial fibrillation SNOMED Code(s): 82744958 ICD Code: I48.91 - UNSPECIFIED ATRIAL FIBRILLATION Status: Chronic Current Visit: Yes Qualifiers: Atrial fibrillation type: chronic Qualified Code(s): I48.2 - Chronic atrial fibrillation (6) COPD, severe SNOMED Code(s): 935484496 ICD Code: J44.9 - CHRONIC OBSTRUCTIVE PULMONARY DISEASE, UNSPECIFIED Status : Chronic Priority: High Current Visit: Yes (7) Current chronic use of systemic steroids SNOMED Code(s): 878661206, 965079292, 258234604 ICD Code: Z79.52 - CORRECTION (CURRENT) USE OF SYSTEMIC STEROIDS Status: Chronic Current Visit: Yes (8) Anemia of chronic disease SNOMED Code(s): 699758417 ICD Code: D63.8 - ANEMIA IN OTHER CHRONIC DISEASES CLASSIFIED ELSEWHERE Status: Chronic Current Visit: Yes (9) Impaired mobility SNOMED Code(s): 57436085 ICD Code: Z74.09 - OTHER REDUCED MOBILITY Status: Acute Priority: High Current Visit: Yes (10) Rheumatoid arthritis SNOMED Code(s): 83833828 ICD Code: M06.9 - RHEUMATOID ARTHRITIS, UNSPECIFIED Status: Chronic Priority: High Current Visit: Yes Qualifiers: Rheumatoid arthritis location: multiple sites Rheumatoid factor presence: with rheumatoid factor Qualified Code(s): M05.79 - Rheumatoid arthritis with rheumatoid factor of multiple sites without organ or systems involvement (11) Hypertension SNOMED Code(s): 21968557 ICD Code: I10 - ESSENTIAL (PRIMARY) HYPERTENSION Status: Chronic Current Visit: Yes Qualifiers: Hypertension type: unspecified secondary hypertension Qualified Code(s): I15.9 - Secondary hypertension, unspecified; I15 - Secondary hypertension (12) Chronic congestive heart failure SNOMED Code(s): 19691457 ICD Code: I50.9 - HEART FAILURE, UNSPECIFIED Status: Chronic Priority: High Current Visit: No Qualifiers: Congestive heart failure type: combined Qualified Code(s): I50.42 - Chronic combined systolic (congestive) and diastolic (congestive) heart failure (13) Osteoarthritis SNOMED Code(s): 189305291 ICD Code: M19.90 - UNSPECIFIED OSTEOARTHRITIS, UNSPECIFIED SITE Status: Chronic Priority: High Current Visit: No Qualifiers: Osteoarthritis location: multiple joints Osteoarthritis type: primary Qualified Code(s): M15.0 - Primary generalized (osteo)arthritis (14) Chronic back pain greater than 3 months duration SNOMED Code(s): 930789634 ICD Code: M54.9 - DORSALGIA, UNSPECIFIED; G89.29 - OTHER CHRONIC PAIN Status: Chronic Current Visit: No Problem List Initiated/Reviewed/Updated: Yes Orders Last 24hrs: Active Orders 24 hr Category Date Time Status Cardiac Education [RC] Click to Edit Care 04/08/17 17:27 Ordered Cardiac Monitoring [RC] .As Directed Care 04/08/17 16:07 Active Communication Order [RC] ASDIRECTED Care 04/08/17 17:27 Ordered Height and Weight [RC] DAILY Care 04/08/17 17:26 Ordered Notify Provider [RC] PRN Care 04/08/17 17:27 Ordered RT Incentive Spirometry [RC] Q2HWA Care 04/08/17 17:26 Ordered OT Evaluation and Treatment [CONS] Routine Cons 04/08/17 17:26 Ordered 2 Gram Sodium Diet [DIET] Diet 04/08/17 Breakfast Ordered Fluid Restriction [DIET] Diet 04/08/17 Dinner Ordered BASIC METABOLIC PANEL,BMP [CHEM] AM Lab 04/09/17 05:11 Ordered ALPRAZolam [Xanax] Med 04/08/17 17:43 Ordered 0.25 mg PO BID PRN Acetaminophen/HYDROcodone [[place] 325-5 MG] Med 04/08/17 17:43 Ordered 1 tab PO Q4HR PRN Albuterol/Ipratropium [DuoNeb 3.0-0.5 MG/3 ML] Med 04/08/17 21:00 Ordered 3 ml NEB QIDRT Aspirin [Halfprin] Med 04/09/17 09:00 Ordered 81 mg PO DAILY Diazepam [Valium] Med 04/08/17 21:00 Ordered 5 mg PO BEDTIME Furosemide [Lasix] Med 04/09/17 05:00 Ordered 40 mg IVPUSH Q12H Hydrochlorothiazide Med 04/09/17 09:00 Ordered 25 mg PO DAILY Hydroxychloroquine [Plaquenil] Med 04/08/17 21:00 Ordered 200 mg PO BEDTIME Isosorbide Mononitrate [Imdur] Med 04/09/17 10:00 Ordered 60 mg PO DAILY@1000 Lisinopril [Prinivil] Med 04/09/17 09:00 Ordered 40 mg PO DAILY Nebivolol [Bystolic] Med 04/08/17 21:00 Ordered 20 mg PO BEDTIME Nystatin [Nystop] Med 04/08/17 17:45 Ordered 1 applic TOP ASDIRECTED Sertraline [Zoloft] Med 04/09/17 09:00 Ordered 25 mg PO DAILY Sodium Chloride 0.9% [Saline Flush] Med 04/08/17 16:00 Active 10 ml FLUSH ASDIRECTED PRN Sulfamethoxazole/Trimethoprim [Septra DS] Med 04/09/17 09:00 Ordered 1 each PO BID amLODIPine [Norvasc] Med 04/08/17 21:00 Ordered 10 mg PO BEDTIME methylPREDNISolone Sod Succ [Solu-MEDROL] Med 04/08/17 17:30 Ordered 62.5 mg IV Q6H Antiembolic Hose [OM.PC] Per Unit Routine Oth 04/08/17 17:36 Ordered Blood Culture x2 Reflex Set [OM.PC] Urgent Oth 04/08/17 17:27 Ordered Saline Lock Insert [OM.PC] Routine Oth 04/08/17 16:00 Ordered Medication Orders Hydrocodone Bitart/Acetaminophen ([place] 325-5 Mg) 1 tab PO Q4HR PRN PRN Reason: Pain Albuterol/Ipratropium (Duoneb 3.0-0.5 Mg/3 Ml) 3 ml NEB QIDRT ROQUE Alprazolam (Xanax) 0.25 mg PO BID PRN PRN Reason: Anxiety Amlodipine Besylate (Norvasc) 10 mg PO BEDTIME ROQUE Docusate Sodium (Colace) 100 mg PO BID PRN PRN Reason: Constipation Methylprednisolone Sodium Succinate (Solu-Medrol) 62.5 mg IV Q6H ROQUE Nystatin (Nystop) gm TOP ASDIRECTED ROQUE Sodium Chloride (Saline Flush) 10 ml FLUSH ASDIRECTED PRN PRN Reason: Keep Vein Open Last Admin: 04/08/17 16:58 Dose: 10 ml Admin: 04/08/17 16:01 Dose: 10 ml Sodium Chloride (Saline Flush) 10 ml FLUSH ASDIRECTED PRN PRN Reason: Keep Vein Open Assessment/Plan Comment:: She presents with COPD exacerbation along with pulmonary edema and left pleural effusion which is minimal. She also has a acute UTI. We'll start her on Bactrim DS both prophylactically for the long regarding the COPD as well as to treat UTI. Culture her urine. Keep her on telemetry as she does have a history of atrial fibrillation along with QT prolongation in the addition of antibiotics and diuretics pose a potential risk for cardiac electrical activity. We will get her started on steroid bursting IV hold her oral dose. DuoNeb's 4 times a day and when necessary as well as incentive spirometry. She will continue with her CPAP at night which is being brought from home. Lasix IV with strict ins and outs and daily weights. Will hold off on a Barrientos catheter at this time. We' ll have PT and OT working with her for strengthening as well as ADLs she does have left elbow surgical repair injury for which she is wearing a posterior splint. Will use compression stockings for DVT prophylaxis at this time. Going to hold off on a PPI due to increased risk of aspiration with use. Will fluid restrict to 1500 mL. No free water. Heart healthy low-sodium diet. Anticipate discharge in the next 2-3 days.
[2017-04-08] MEDS ORDERED: methylPREDNISolone Sodium Succinate 40 MG/1 ML SDV ONE (18:52)
[2017-04-08] MEDS: methylPREDNISolone Sodium Succinate 40 MG/1 ML SDV IV SCH (18:56)
[2017-04-08] MEDS: Albuterol/Ipratropium 3.0-0.5 MG/3 ML Neb Soln NEB SCH (20:50)
[2017-04-08] MEDS: Diazepam 5 MG Tab PO SCH (20:50)
[2017-04-08] MEDS: amLODIPine 10 MG Tab PO SCH (20:59)
[2017-04-08] MEDS: Hydroxychloroquine 200 MG Tab PO SCH (21:30)
[2017-04-09] MEDS: methylPREDNISolone Sodium Succinate 40 MG/1 ML SDV IV SCH ×3 (00:21→13:18)
[2017-04-09] MEDS ORDERED: Furosemide 40 MG/4 ML VIAL IVPUSH SCH (05:00)
[2017-04-09] MEDS: Sodium Chloride 0.9% 10 ML Syringe FLUSH PRN (05:51)
[2017-04-09] MEDS: Albuterol/Ipratropium 3.0-0.5 MG/3 ML Neb Soln NEB SCH ×4 (09:04→20:02)
--- NOTE | 2017-04-09 09:32 | PCM.PN ---
- General Info Date of Service: 04/09/17 Subjective Update: She and her are both in the room today. She sitting up in wheelchair smiling no acute respiratory distress. She looks much improved. No audible wheezing with normal respiratory effort. She would like to go home today. There' ve been no events overnight. Again she denies any fevers or chills, no sputum production or cough. She admits to some expiratory wheezing intermittently but much improved. She's not had any chest pain or pressure no shoulder or neck or jaw pain. She denies any palpitations headache or lightheadedness. She denies any nasal congestion sore throat or joint swelling. She's not had any nausea or vomiting denies abdominal pain, constipation or diarrhea. She denies any dysuria or hematuria but does have incontinence. Denies any foul odor to urine or discoloration. Denies any decreased urination. Functional Status: Reports: Pain Controlled, Tolerating Diet, Urinating, Incentive Spirometry (Back up to baseline of 700.) - Review of Systems Systems Review Comment:: Pertinent positives and negatives relevant to today's visit please see history of present illness - Patient Data Vitals - Most Recent: Last Vital Signs Vital Signs - 24 hr 04/08/17 04/08/17 04/08/17 13:07 14:37 15:55 Temperature [ Axillary] Temperature [ 98.8 F Oral] Pulse, Peripheral Pulse, 72 Peripheral [ Right Pulse Oximetry] Respiratory 25 H Rate Blood Pressure Blood Pressure 166/77 H [Right Upper Arm] O2 Sat by Pulse 98 Oximetry O2 Sat by Pulse Oximetry [CPAP ] O2 Sat by Pulse 96 91 L Oximetry [Room Air] 04/08/17 04/08/17 04/08/17 16:10 16:15 20:00 Temperature [ Axillary] Temperature [ 98.3 F 98.3 F Oral] Pulse, Peripheral Pulse, 75 74 Peripheral [ Right Pulse Oximetry] Respiratory 18 17 Rate Blood Pressure Blood Pressure 176/96 H 152/81 H [Right Upper Arm] O2 Sat by Pulse 91 L 91 L 88 L Oximetry O2 Sat by Pulse Oximetry [CPAP ] O2 Sat by Pulse Oximetry [Room Air] 04/08/17 04/08/17 04/08/17 20:59 21:00 21:29 Temperature [ Axillary] Temperature [ Oral] Pulse, 71 Peripheral Pulse, 78 Peripheral [ Right Pulse Oximetry] Respiratory Rate Blood Pressure 152/81 H 152/81 H Blood Pressure [Right Upper Arm] O2 Sat by Pulse Oximetry O2 Sat by Pulse Oximetry [CPAP ] O2 Sat by Pulse 88 L Oximetry [Room Air] 04/08/17 04/08/17 04/09/17 23:57 23:59 04:00 Temperature [ 98.4 F 97.4 F Axillary] Temperature [ Oral] Pulse, Peripheral Pulse, 78 76 65 Peripheral [ Right Pulse Oximetry] Respiratory 17 17 Rate Blood Pressure Blood Pressure 152/87 H 145/92 H [Right Upper Arm] O2 Sat by Pulse 96 96 Oximetry O2 Sat by Pulse 96 Oximetry [CPAP ] O2 Sat by Pulse Oximetry [Room Air] 04/09/17 09:06 Temperature [ Axillary] Temperature [ Oral] Pulse, Peripheral Pulse, 58 L Peripheral [ Right Pulse Oximetry] Respiratory Rate Blood Pressure Blood Pressure [Right Upper Arm] O2 Sat by Pulse Oximetry O2 Sat by Pulse Oximetry [CPAP ] O2 Sat by Pulse 94 L Oximetry [Room Air] Weight - Most Recent: 87.634 kg I&O - Last 24 Hours: Intake & Output 04/08/17 04/09/17 22:59 06:59 Intake Total 0 100 Output Total 925 Balance -925 100 Comparing dry diaper weight with wet weight. Stated dry weight on admission: 87.09 kg. Bed scale weight on admission: 89.16 kg Today's weight bed scale: 87.634 kg (roughly down 3.4 pounds) No BMs Lab Results Last 24 Hours: Laboratory Tests 04/08/17 04/08/17 04/08/17 Range/Units 13:30 13:30 13:30 WBC 9.4 (4.5-12.0) X10-3/uL RBC 4.27 (3.23-5.20) x10(6)uL Hgb 9.7 L (11.5-15.5) g/dL Hct 31.4 (30.0-51.3) % MCV 73.4 L (80-96) fL MCH 22.6 L (27.7-33.6) pg MCHC 30.8 L (32.2-35.4) g/dL RDW 16.1 H (11.5-15.5) % Plt Count 238 (125-369) X10(3)uL MPV 7.6 (7.4-10.4) fL Add Manual Diff Yes Neutrophils % (Manual) 87 H (46-82) % Lymphocytes % (Manual) 6 L (13-37) % Monocytes % (Manual) 7 (4-12) % Hypochromasia Few Anisocytosis Few Microcytosis Moderate H PT 11.4 H (8.7-11.1) INR 1.13 (0.89-1.13) Sodium 140 (135-145) mmol/L Potassium 3.8 (3.5-5.3) mmol/L Chloride 102 (100-110) mmol/L Carbon Dioxide 29 (21-32) mmol/L BUN 22 H (7-18) mg/dL Creatinine 0.7 (0.55-1.02) mg/dL Est Cr Clr Drug Dosing 55.68 mL/min Estimated GFR (MDRD) > 60 (>60) BUN/Creatinine Ratio 31.4 H (9-20) Glucose 158 H (80-116) mg/dL Calcium 9.6 (8.6-10.2) mg/dL Creatine Kinase (60-160) IU/L Troponin I (<0.017-0.056) ng/mL NT-Pro-B Natriuret Pep (<=450) pg/mL Urine Color (YELLOW) Urine Appearance (CLEAR) Urine pH (5.0-6.5) Ur Specific [employer] (1.010-1.025) Urine Protein (NEGATIVE) mg/dL Urine Glucose (UA) (NEGATIVE) mg/dL Urine Ketones (NEGATIVE) mg/dL Urine Occult Blood (NEGATIVE) Urine Nitrite (NEGATIVE) Urine Bilirubin (NEGATIVE) Urine Urobilinogen (NEGATIVE) mg/dL Ur Leukocyte Esterase (NEGATIVE) Urine RBC (0) Urine WBC (0) Ur Squamous Epith Cells (NS,R,O) Amorphous Sediment Urine Bacteria (NS) 04/08/17 04/08/17 04/08/17 Range/Units 13:30 13:30 13:30 WBC (4.5-12.0) X10-3/uL RBC (3.23-5.20) x10(6)uL Hgb (11.5-15.5) g/dL Hct (30.0-51.3) % MCV (80-96) fL MCH (27.7-33.6) pg MCHC (32.2-35.4) g/dL RDW (11.5-15.5) % Plt Count (125-369) X10(3)uL MPV (7.4-10.4) fL Add Manual Diff Neutrophils % (Manual) (46-82) % Lymphocytes % (Manual) (13-37) % Monocytes % (Manual) (4-12) % Hypochromasia Anisocytosis Microcytosis PT (8.7-11.1) INR (0.89-1.13) Sodium (135-145) mmol/L Potassium (3.5-5.3) mmol/L Chloride (100-110) mmol/L Carbon Dioxide (21-32) mmol/L BUN (7-18) mg/dL Creatinine (0.55-1.02) mg/dL Est Cr Clr Drug Dosing mL/min Estimated GFR (MDRD) (>60) BUN/Creatinine Ratio (9-20) Glucose (80-116) mg/dL Calcium (8.6-10.2) mg/dL Creatine Kinase 46 L (60-160) IU/L Troponin I < 0.017 L (<0.017-0.056) ng/mL NT-Pro-B Natriuret Pep 1859 H* (<=450) pg/mL Urine Color (YELLOW) Urine Appearance (CLEAR) Urine pH (5.0-6.5) Ur Specific [employer] (1.010-1.025) Urine Protein (NEGATIVE) mg/dL Urine Glucose (UA) (NEGATIVE) mg/dL Urine Ketones (NEGATIVE) mg/dL Urine Occult Blood (NEGATIVE) Urine Nitrite (NEGATIVE) Urine Bilirubin (NEGATIVE) Urine Urobilinogen (NEGATIVE) mg/dL Ur Leukocyte Esterase (NEGATIVE) Urine RBC (0) Urine WBC (0) Ur Squamous Epith Cells (NS,R,O) Amorphous Sediment Urine Bacteria (NS) 04/08/17 04/09/17 Range/Units 13:55 06:20 WBC (4.5-12.0) X10-3/uL RBC (3.23-5.20) x10(6)uL Hgb (11.5-15.5) g/dL Hct (30.0-51.3) % MCV (80-96) fL MCH (27.7-33.6) pg MCHC (32.2-35.4) g/dL RDW (11.5-15.5) % Plt Count (125-369) X10(3)uL MPV (7.4-10.4) fL Add Manual Diff Neutrophils % (Manual) (46-82) % Lymphocytes % (Manual) (13-37) % Monocytes % (Manual) (4-12) % Hypochromasia Anisocytosis Microcytosis PT (8.7-11.1) INR (0.89-1.13) Sodium 141 (135-145) mmol/L Potassium 3.8 (3.5-5.3) mmol/L Chloride 102 (100-110) mmol/L Carbon Dioxide 30 (21-32) mmol/L BUN 26 H (7-18) mg/dL Creatinine 0.7 (0.55-1.02) mg/dL Est Cr Clr Drug Dosing 55.68 mL/min Estimated GFR (MDRD) > 60 (>60) BUN/Creatinine Ratio 37.1 H (9-20) Glucose 194 H (80-116) mg/dL Calcium 9.7 (8.6-10.2) mg/dL Creatine Kinase (60-160) IU/L Troponin I (<0.017-0.056) ng/mL NT-Pro-B Natriuret Pep (<=450) pg/mL Urine Color Yellow (YELLOW) Urine Appearance Clear (CLEAR) Urine pH 6.0 (5.0-6.5) Ur Specific [employer] 1.015 (1.010-1.025) Urine Protein Negative (NEGATIVE) mg/dL Urine Glucose (UA) Normal (NEGATIVE) mg/dL Urine Ketones Negative (NEGATIVE) mg/dL Urine Occult Blood Negative (NEGATIVE) Urine Nitrite Negative (NEGATIVE) Urine Bilirubin Negative (NEGATIVE) Urine Urobilinogen Normal (NEGATIVE) mg/dL Ur Leukocyte Esterase Moderate H (NEGATIVE) Urine RBC 0-5 (0) Urine WBC 5-10 (0) Ur Squamous Epith Cells Few H (NS,R,O) Amorphous Sediment Moderate Urine Bacteria Moderate H (NS) Skyler Results Last 24 Hours: Urine cultures pending Blood cultures pending Med Orders - Current: Current Medications Hydrocodone Bitart/Acetaminophen ([place] 325-5 Mg) 1 tab PO Q4H PRN PRN Reason: Pain Albuterol/Ipratropium (Duoneb 3.0-0.5 Mg/3 Ml) 3 ml NEB QIDRT ON LICENSE OF [facility] Last Admin: 04/09/17 09:04 Dose: 3 ml Alprazolam (Xanax) 0.25 mg PO BID PRN PRN Reason: Anxiety Amlodipine Besylate (Norvasc) 10 mg PO BEDTIME ON LICENSE OF [facility] Last Admin: 04/08/17 20:59 Dose: 10 mg Aspirin (Halfprin) 81 mg PO DAILY ON LICENSE OF [facility] Diazepam (Valium.) 5 mg PO BEDTIME ON LICENSE OF [facility] Last Admin: 04/08/17 20:50 Dose: 5 mg Docusate Sodium (Colace) 100 mg PO BID PRN PRN Reason: Constipation Hydrochlorothiazide (Hydrochlorothiazide) 25 mg PO DAILY ON LICENSE OF [facility] Hydroxychloroquine Sulfate (Plaquenil) 200 mg PO BEDTIME ON LICENSE OF [facility] Last Admin: 04/08/17 21:30 Dose: 200 mg Insulin Aspart (Novolog) 0 unit SUBCUT QIDACANDBED ON LICENSE OF [facility] PRN Reason: Protocol Isosorbide Mononitrate (Imdur) 60 mg PO DAILY@1000 ON LICENSE OF [facility] Lisinopril (Prinivil) 40 mg PO DAILY ON LICENSE OF [facility] Methylprednisolone Sodium Succinate (Solu-Medrol) 62.5 mg IV Q6H ON LICENSE OF [facility] Last Admin: 04/09/17 05:48 Dose: 62.5 mg Nebivolol (Bystolic) 20 mg PO BEDTIME ON LICENSE OF [facility] Last Admin: 04/08/17 21:29 Dose: 20 mg Nystatin (Nystop) 0 gm TOP ASDIRECTED ON LICENSE OF [facility] Sertraline HCl (Zoloft) 25 mg PO DAILY ON LICENSE OF [facility] Sodium Chloride (Saline Flush) 10 ml FLUSH ASDIRECTED PRN PRN Reason: Keep Vein Open Last Admin: 04/09/17 05:51 Dose: 10 ml Sodium Chloride (Saline Flush) 10 ml FLUSH ASDIRECTED PRN PRN Reason: Keep Vein Open Last Admin: 04/09/17 00:21 Dose: 10 ml Trimethoprim/Sulfamethoxazole (Septra Ds) 1 tab PO BID ON LICENSE OF [facility] Discontinued Medications Albuterol/Ipratropium (Duoneb 3.0-0.5 Mg/3 Ml) 3 ml NEB ONETIME ONE Stop: 04/08/17 14:28 Last Admin: 04/08/17 14:37 Dose: 3 ml Furosemide (Lasix) 20 mg IVPUSH ONETIME ONE Stop: 04/08/17 16:03 Last Admin: 04/08/17 16:53 Dose: 20 mg Furosemide (Lasix) 40 mg IVPUSH Q12H ROQUE Last Admin: 04/09/17 05:49 Dose: 40 mg Levofloxacin (Levaquin) 500 mg PO ONETIME STA Stop: 04/08/17 14:46 Last Admin: 04/08/17 14:52 Dose: Not Given Methylprednisolone Sodium Succinate (Solu-Medrol) Confirm Administered Dose 40 mg .ROUTE .STK-MED ONE Stop: 04/08/17 18:53 Last Admin: 04/09/17 08:53 Dose: Not Given Ondansetron HCl (Zofran) 4 mg IV Q4H PRN PRN Reason: Nausea/Vomiting Trimethoprim/Sulfamethoxazole (Septra Ds) 1 tab PO ONETIME ONE Stop: 04/08/17 14:50 Last Admin: 04/08/17 14:53 Dose: 1 tab - Exam Physical Findings Comments:: General: Alert, Oriented, Cooperative HEENT: Conjunctiva Clear, Hearing Intact, Mucosa Moist & [place] Neck: Trachea Midline. No: JVD Lungs: Normal Respiratory Effort, Decreased Breath Sounds (Left lower lobe), Rales (Bilateral lower lobes minimal at best), no wheezing today Cardiovascular: Regular Rate, Irregular Rhythm, no murmur GI/Abdominal Exam: Normal Bowel Sounds, Soft, Non-Tender, Hernia (Small 1 cm umbilical hernia nonincarcerated also left abdominal wall diastases roughly 3 cm x 3 cm palpable.) Extremities: Other (She has lower extremity edema at the knees roughly tr bilateral and symmetric, wearing teds compression stockings up to the knees tolerating these well.. She has numerous skin discoloration secondary to minocycline in the past. No active joint redness tenderness or swelling. There is no calf tenderness negative Homans. Neuro Extensive - Mental Status: Normal Mood/Affect. No focal deficits neurologically. Psychiatric: No increased anxiety - Problem List & Annotations (1) Acute on chronic congestive heart failure SNOMED Code(s): 18666950 Code(s): I50.9 - HEART FAILURE, UNSPECIFIED Status: Acute Current Visit: Yes Qualifiers: Congestive heart failure type: unspecified congestive heart failure type Qualified Code(s): I50.9 - Heart failure, unspecified (2) Pleural effusion, left SNOMED Code(s): 10863476 Code(s): J90 - PLEURAL EFFUSION, NOT ELSEWHERE CLASSIFIED Status: Acute Current Visit: Yes (3) COPD with exacerbation SNOMED Code(s): 490321289146328 Code(s): J44.1 - CHRONIC OBSTRUCTIVE PULMONARY DISEASE W (ACUTE) EXACERBATION Status: Acute Current Visit: Yes (4) UTI (urinary tract infection), bacterial SNOMED Code(s): 194867480 Code(s): N39.0 - URINARY TRACT INFECTION, SITE NOT SPECIFIED; A49.9 - BACTERIAL INFECTION, UNSPECIFIED Status: Acute Priority: High Current Visit: Yes (5) COPD, severe SNOMED Code(s): 137418526 Code(s): J44.9 - CHRONIC OBSTRUCTIVE PULMONARY DISEASE, UNSPECIFIED Status : Chronic Priority: High Current Visit: Yes (6) PATRICIA treated with BiPAP SNOMED Code(s): 27508274 Code(s): G47.33 - OBSTRUCTIVE SLEEP APNEA (ADULT) (PEDIATRIC) Status: Chronic Current Visit: Yes (7) Atrial fibrillation SNOMED Code(s): 11599311 Code(s): I48.91 - UNSPECIFIED ATRIAL FIBRILLATION Status: Chronic Current Visit: Yes Qualifiers: Atrial fibrillation type: chronic Qualified Code(s): I48.2 - Chronic atrial fibrillation (8) Current chronic use of systemic steroids SNOMED Code(s): 130057667, 475998635, 341622753 Code(s): Z79.52 - GROUP HOME (CURRENT) USE OF SYSTEMIC STEROIDS Status: Chronic Current Visit: Yes (9) Anemia of chronic disease SNOMED Code(s): 338770651 Code(s): D63.8 - ANEMIA IN OTHER CHRONIC DISEASES CLASSIFIED ELSEWHERE Status: Chronic Current Visit: Yes (10) Impaired mobility SNOMED Code(s): 89736723 Code(s): Z74.09 - OTHER REDUCED MOBILITY Status: Acute Priority: High Current Visit: Yes (11) Rheumatoid arthritis SNOMED Code(s): 02124738 Code(s): M06.9 - RHEUMATOID ARTHRITIS, UNSPECIFIED Status: Chronic Priority: High Current Visit: Yes Qualifiers: Rheumatoid arthritis location: multiple sites Rheumatoid factor presence: with rheumatoid factor Qualified Code(s): M05.79 - Rheumatoid arthritis with rheumatoid factor of multiple sites without organ or systems involvement (12) Hypertension SNOMED Code(s): 08320353 Code(s): I10 - ESSENTIAL (PRIMARY) HYPERTENSION Status: Chronic Current Visit: Yes Qualifiers: Hypertension type: unspecified secondary hypertension Qualified Code(s): I15.9 - Secondary hypertension, unspecified; I15 - Secondary hypertension (13) Chronic congestive heart failure SNOMED Code(s): 66420480 Code(s): I50.9 - HEART FAILURE, UNSPECIFIED Status: Chronic Priority: High Current Visit: No Qualifiers: Congestive heart failure type: combined Qualified Code(s): I50.42 - Chronic combined systolic (congestive) and diastolic (congestive) heart failure (14) Osteoarthritis SNOMED Code(s): 244298356 Code(s): M19.90 - UNSPECIFIED OSTEOARTHRITIS, UNSPECIFIED SITE Status: Chronic Priority: High Current Visit: No Qualifiers: Osteoarthritis location: multiple joints Osteoarthritis type: primary Qualified Code(s): M15.0 - Primary generalized (osteo)arthritis (15) Chronic back pain greater than 3 months duration SNOMED Code(s): 318037416 Code(s): M54.9 - DORSALGIA, UNSPECIFIED; G89.29 - OTHER CHRONIC PAIN Status : Chronic Current Visit: No - Problem List Review Problem List Initiated/Reviewed/Updated: Yes - My Orders Last 24 Hours: My Active Orders 04/09/17 09:00 Aspirin [Halfprin] 81 mg PO DAILY Hydrochlorothiazide 25 mg PO DAILY Lisinopril [Prinivil] 40 mg PO DAILY Sertraline [Zoloft] 25 mg PO DAILY Sulfamethoxazole/Trimethoprim [Septra DS] 1 tab PO BID 04/09/17 09:20 Blood Glucose Check, Bedside [RC] QIDACANDBED 04/09/17 09:44 GLYCOSYLATED HEMOGLOBIN,HGBA1C [CHEM] Routine 04/09/17 10:00 Isosorbide Mononitrate [Imdur] 60 mg PO DAILY@1000 04/09/17 11:30 Insulin Aspart [NovoLOG] See Protocol SUBCUT QIDACANDBED 04/10/17 05:11 CBC WITH AUTO DIFF [HEME] AM 04/10/17 09:45 BASIC METABOLIC PANEL,BMP [CHEM] AM 04/08/17 17:26 Height and Weight [RC] 06 RT Incentive Spirometry [RC] Q2HWA OT Evaluation and Treatment [CONS] Routine 04/08/17 17:27 Cardiac Education [RC] Click to Edit Communication Order [RC] ASDIRECTED Notify Provider [RC] PRN Blood Culture x2 Reflex Set [OM.PC] Urgent 04/08/17 17:30 methylPREDNISolone Sod Succ [Solu-MEDROL] 62.5 mg IV Q6H 04/08/17 17:36 Antiembolic Hose [OM.PC] Per Unit Routine 04/08/17 17:43 ALPRAZolam [Xanax] 0.25 mg PO BID PRN Acetaminophen/HYDROcodone [[place] 325-5 MG] 1 tab PO Q4H PRN 04/08/17 17:45 Nystatin [Nystop] 0 gm TOP ASDIRECTED 04/08/17 18:13 Patient Status [ADT] Routine 04/08/17 21:00 Albuterol/Ipratropium [DuoNeb 3.0-0.5 MG/3 ML] 3 ml NEB QIDRT Diazepam [Valium] 5 mg PO BEDTIME Hydroxychloroquine [Plaquenil] 200 mg PO BEDTIME Nebivolol [Bystolic] 20 mg PO BEDTIME amLODIPine [Norvasc] 10 mg PO BEDTIME 04/08/17 Dinner Fluid Restriction [DIET] - Assessment Assessment:: Please see above - Plan Plan:: Showing improvement in regards to COPD exacerbation along with pulmonary edema and left pleural effusion which is minimal. Her incentive spirometry volumes have increased from 500-750. She also has a acute UTI on Bactrim DS both prophylactically for the lungs regarding the COPD exacerbation. Urine culture pending blood cultures pending. No events overnight on telemetry. Will discontinue. We will get her started on oral steroid taper. Also going to start Accu-Cheks with meals and at bed supplement with NovoLog low-dose sliding scale as I anticipate glucose levels will elevate with steroids. Continue DuoNeb's 4 times a day and when necessary as well as incentive spirometry. She will continue with her CPAP at night. Lasix IV I will stop for now as she is starting to dry out and weight coming down. Blood pressure initially high on admission but with addition of her home medications this has come down nicely so will continue such current dosing. I'll continue with strict ins and outs and daily weights. We'll have PT and OT working with her for strengthening as well as ADLs she does have left elbow surgical repair injury for which she is wearing a posterior splint. No free water. Heart healthy low-sodium diet. Depending how she does the rest of the day and overnight may consider discharge in the morning she has good care via her .
[2017-04-09] MEDS: Sulfamethoxazole/Trimethoprim 800-160 MG Tab PO SCH ×2 (10:18→20:01)
[2017-04-09] MEDS: Hydrochlorothiazide 25 MG Tab PO SCH (10:18)
[2017-04-09] MEDS: Aspirin 81 MG Tab.EC PO SCH (10:18)
[2017-04-09] MEDS: Isosorbide Mononitrate 60 MG Tab.ER PO SCH (10:28)
[2017-04-09] MEDS: Sertraline 25 MG Tab PO SCH (10:28)
[2017-04-09] MEDS ORDERED: Menthol/Methyl Salicylate 85 GM Tube TOP PRN (11:39)
[2017-04-09] MEDS: Insulin Aspart 100 Units/ML 3 ML Pen SUBCUT SCH ×3 (14:33→20:24)
[2017-04-09] MEDS: amLODIPine 10 MG Tab PO SCH (20:01)
[2017-04-09] MEDS: Diazepam 5 MG Tab PO SCH (20:01)
[2017-04-09] MEDS: Hydroxychloroquine 200 MG Tab PO SCH (20:20)
[2017-04-10] MEDS: Albuterol/Ipratropium 3.0-0.5 MG/3 ML Neb Soln NEB SCH ×2 (07:07→10:47)
[2017-04-10] MEDS: Insulin Aspart 100 Units/ML 3 ML Pen SUBCUT SCH ×2 (07:34→11:52)
[2017-04-10] MEDS ORDERED: predniSONE 10 MG Tab PO SCH (08:00)
[2017-04-10] MEDS ORDERED: Nystatin Topical Powder 15 GM Bottle TOP SCH (09:00)
--- NOTE | 2017-04-10 09:25 | PCM.PN ---
- General Info Date of Service: 04/10/17 Subjective Update: patient is here in the room sitting up eating. Her is with her today. She states she is ready to go home. She is back to her baseline with her incentive spirometry. She states her breathing is much improved. She denies shortness of breath, chest pain or pressure, chewing or swallowing difficulty, her cough is loosening and clear sputum. No fevers or chills, denies nausea, there is been no vomiting, she denies abdominal pain. Comorbidities have been controlled and treated inpatient. She is receiving Bactrim which she is tolerating. She is also tolerating oral prednisone which was started yesterday. IV Lasix did take fluid off which helped. She and her believe she is back to her baseline and wished to go home today. They do utilize [facility] for nebulizations and would like to continue to do so. She would like to see Nadja Luevano over [facility] which she should do in the next 7-10 days for follow-up. - Review of Systems Systems Review Comment:: for pertinent positives and negatives please see history of present illness - Patient Data Vitals - Most Recent: Last Vital Signs Temp 97.8 F 04/10/17 01:00 Pulse 68 04/10/17 07:25 Resp 18 04/10/17 04:00 BP 118/67 04/10/17 01:00 Pulse Ox 95 04/10/17 07:25 Weight - Most Recent: 88.859 kg I&O - Last 24 Hours: Intake & Output 04/09/17 04/10/17 22:59 06:59 Intake Total 200 75 Output Total 200 0 Balance 0 75 Lab Results Last 24 Hours: Laboratory Results - last 24 hr 04/09/17 04/09/17 04/09/17 Range/Units 06:20 17:23 20:16 WBC (4.5-12.0) X10-3/uL RBC (3.23-5.20) x10(6)uL Hgb (11.5-15.5) g/dL Hct (30.0-51.3) % MCV (80-96) fL MCH (27.7-33.6) pg MCHC (32.2-35.4) g/dL RDW (11.5-15.5) % Plt Count (125-369) X10(3)uL MPV (7.4-10.4) fL Neut % (Auto) (46-82) % Lymph % (Auto) (13-37) % [place] % (Auto) (4-12) % Eos % (Auto) (1.0-5.0) % Baso % (Auto) (0-2) % Neut # (Auto) (1.6-8.3) # Lymph # (Auto) (0.6-5.0) # [place] # (Auto) (0.0-1.3) # Eos # (Auto) (0.0-0.8) # Baso # (Auto) (0.0-0.2) # Sodium (135-145) mmol/L Potassium (3.5-5.3) mmol/L Chloride (100-110) mmol/L Carbon Dioxide (21-32) mmol/L BUN (7-18) mg/dL Creatinine (0.55-1.02) mg/dL Est Cr Clr Drug Dosing mL/min Estimated GFR (MDRD) (>60) BUN/Creatinine Ratio (9-20) Glucose (80-116) mg/dL POC Glucose 195 H 214 H (80-116) mg/dL Hemoglobin A1c 6.6 H (4.5-6.2) % Calcium (8.6-10.2) mg/dL 04/10/17 04/10/17 Range/Units 06:20 06:20 WBC 11.0 (4.5-12.0) X10-3/uL RBC 4.07 (3.23-5.20) x10(6)uL Hgb 9.2 L (11.5-15.5) g/dL Hct 29.9 L (30.0-51.3) % MCV 73.6 L (80-96) fL MCH 22.6 L (27.7-33.6) pg MCHC 30.6 L (32.2-35.4) g/dL RDW 16.2 H (11.5-15.5) % Plt Count 255 (125-369) X10(3)uL MPV 7.2 L (7.4-10.4) fL Neut % (Auto) 81.0 (46-82) % Lymph % (Auto) 10.3 L (13-37) % [place] % (Auto) 8.3 (4-12) % Eos % (Auto) 0 L (1.0-5.0) % Baso % (Auto) 0 (0-2) % Neut # (Auto) 9.0 H (1.6-8.3) # Lymph # (Auto) 1.1 (0.6-5.0) # [place] # (Auto) 0.9 (0.0-1.3) # Eos # (Auto) 0.0 (0.0-0.8) # Baso # (Auto) 0.0 (0.0-0.2) # Sodium 145 (135-145) mmol/L Potassium 3.5 (3.5-5.3) mmol/L Chloride 104 (100-110) mmol/L Carbon Dioxide 30 (21-32) mmol/L BUN 42 H D (7-18) mg/dL Creatinine 1.0 (0.55-1.02) mg/dL Est Cr Clr Drug Dosing 38.97 mL/min Estimated GFR (MDRD) 54 L (>60) BUN/Creatinine Ratio 42.0 H (9-20) Glucose 142 H (80-116) mg/dL POC Glucose (80-116) mg/dL Hemoglobin A1c (4.5-6.2) % Calcium 9.6 (8.6-10.2) mg/dL Skyler Results Last 24 Hours: Microbiology 04/08/17 13:55 Urine, Catheterized Urine Culture - Preliminary Gram Negative Rods Med Orders - Current: Current Medications Hydrocodone Bitart/Acetaminophen ([place] 325-5 Mg) 1 tab PO Q4H PRN PRN Reason: Pain Albuterol/Ipratropium (Duoneb 3.0-0.5 Mg/3 Ml) 3 ml NEB QIDRT [facility] Last Admin: 04/10/17 07:07 Dose: 3 ml Alprazolam (Xanax) 0.25 mg PO BID PRN PRN Reason: Anxiety Amlodipine Besylate (Norvasc) 10 mg PO BEDTIME [facility] Last Admin: 04/09/17 20:01 Dose: 10 mg Aspirin (Halfprin) 81 mg PO DAILY [facility] Last Admin: 04/09/17 10:18 Dose: 81 mg Diazepam (Valium.) 5 mg PO BEDTIME [facility] Last Admin: 04/09/17 20:01 Dose: 5 mg Docusate Sodium (Colace) 100 mg PO BID PRN PRN Reason: Constipation Hydrochlorothiazide (Hydrochlorothiazide) 25 mg PO DAILY [facility] Last Admin: 04/09/17 10:18 Dose: 25 mg Hydroxychloroquine Sulfate (Plaquenil) 200 mg PO BEDTIME [facility] Last Admin: 04/09/17 20:20 Dose: 200 mg Insulin Aspart (Novolog) 0 unit SUBCUT QIDACANDBED [facility] PRN Reason: Protocol Last Admin: 04/10/17 07:34 Dose: Not Given Isosorbide Mononitrate (Imdur) 60 mg PO DAILY@1000 [facility] Last Admin: 04/09/17 10:28 Dose: 60 mg Lisinopril (Prinivil) 40 mg PO DAILY [facility] Last Admin: 04/09/17 10:28 Dose: 40 mg Methyl Salicylate (Icy Hot Cream) 0 gm TOP QID PRN PRN Reason: pain in legs and feet Last Admin: 04/09/17 14:58 Dose: 1 applic Nebivolol (Bystolic) 20 mg PO BEDTIME [facility] Last Admin: 04/09/17 20:21 Dose: 20 mg Nystatin (Nystop) 0 gm TOP DAILY [facility] Prednisone (Prednisone) 60 mg PO DAILY [facility] PRN Reason: Taper Stop: 04/20/17 07:59 Sertraline HCl (Zoloft) 25 mg PO DAILY [facility] Last Admin: 04/09/17 10:28 Dose: 25 mg Trimethoprim/Sulfamethoxazole (Septra Ds) 1 tab PO BID [facility] Last Admin: 04/09/17 20:01 Dose: 1 tab Discontinued Medications Albuterol/Ipratropium (Duoneb 3.0-0.5 Mg/3 Ml) 3 ml NEB ONETIME ONE Stop: 04/08/17 14:28 Last Admin: 04/08/17 14:37 Dose: 3 ml Furosemide (Lasix) 20 mg IVPUSH ONETIME ONE Stop: 04/08/17 16:03 Last Admin: 04/08/17 16:53 Dose: 20 mg Furosemide (Lasix) 40 mg IVPUSH Q12H [facility] Last Admin: 04/09/17 05:49 Dose: 40 mg Levofloxacin (Levaquin) 500 mg PO ONETIME STA Stop: 04/08/17 14:46 Last Admin: 04/08/17 14:52 Dose: Not Given Methylprednisolone Sodium Succinate (Solu-Medrol) 62.5 mg IV Q6H [facility] Last Admin: 04/09/17 13:18 Dose: Not Given Methylprednisolone Sodium Succinate (Solu-Medrol) Confirm Administered Dose 40 mg .ROUTE .STK-MED ONE Stop: 04/08/17 18:53 Last Admin: 04/09/17 08:53 Dose: Not Given Nystatin (Nystop) 0 gm TOP ASDIRECTED [facility] Last Admin: 04/09/17 10:30 Dose: 1 applicful Ondansetron HCl (Zofran) 4 mg IV Q4H PRN PRN Reason: Nausea/Vomiting Sodium Chloride (Saline Flush) 10 ml FLUSH ASDIRECTED PRN PRN Reason: Keep Vein Open Last Admin: 04/09/17 05:51 Dose: 10 ml Sodium Chloride (Saline Flush) 10 ml FLUSH ASDIRECTED PRN PRN Reason: Keep Vein Open Last Admin: 04/09/17 00:21 Dose: 10 ml Trimethoprim/Sulfamethoxazole (Septra Ds) 1 tab PO ONETIME ONE Stop: 04/08/17 14:50 Last Admin: 04/08/17 14:53 Dose: 1 tab - Exam Physical Findings Comments:: General: Alert, Oriented, Cooperative HEENT: Conjunctiva Clear, Hearing Intact, Mucosa Moist & [place] Neck: Trachea Midline. No: JVD Lungs: Normal Respiratory Effort, Decreased Breath Sounds (Left lower lobe however deeper aeration bilateral appreciated), Rales (Bilateral lower lobes minimal at best), no wheezing today Cardiovascular: Regular Rate, Irregular Rhythm, no murmur GI/Abdominal Exam: Normal Bowel Sounds, Soft, Non-Tender, Hernia (Small 1 cm umbilical hernia nonincarcerated also left abdominal wall diastases roughly 3 cm x 3 cm palpable.) Extremities: Other (She has lower extremity edema at the knees roughly tr bilateral and symmetric, wearing teds compression stockings up to the knees tolerating these well.. She has numerous skin discoloration secondary to minocycline in the past. No active joint redness tenderness or swelling. There is no calf tenderness negative Homans. Neuro Extensive - Mental Status: Normal Mood/Affect. No focal deficits neurologically. Psychiatric: No increased anxiety - Problem List & Annotations (1) COPD with exacerbation SNOMED Code(s): 569406571479123 Code(s): J44.1 - CHRONIC OBSTRUCTIVE PULMONARY DISEASE W (ACUTE) EXACERBATION Status: Acute Current Visit: Yes (2) Acute on chronic congestive heart failure SNOMED Code(s): 41924444 Code(s): I50.9 - HEART FAILURE, UNSPECIFIED Status: Acute Current Visit: Yes Qualifiers: Congestive heart failure type: unspecified congestive heart failure type Qualified Code(s): I50.9 - Heart failure, unspecified (3) Pleural effusion, left SNOMED Code(s): 95266889 Code(s): J90 - PLEURAL EFFUSION, NOT ELSEWHERE CLASSIFIED Status: Acute Current Visit: Yes (4) UTI (urinary tract infection), bacterial SNOMED Code(s): 587141557 Code(s): N39.0 - URINARY TRACT INFECTION, SITE NOT SPECIFIED; A49.9 - BACTERIAL INFECTION, UNSPECIFIED Status: Acute Priority: High Current Visit: Yes (5) COPD, severe SNOMED Code(s): 765765867 Code(s): J44.9 - CHRONIC OBSTRUCTIVE PULMONARY DISEASE, UNSPECIFIED Status : Chronic Priority: High Current Visit: Yes (6) PATRICIA treated with BiPAP SNOMED Code(s): 54128011 Code(s): G47.33 - OBSTRUCTIVE SLEEP APNEA (ADULT) (PEDIATRIC) Status: Chronic Current Visit: Yes (7) Atrial fibrillation SNOMED Code(s): 22491430 Code(s): I48.91 - UNSPECIFIED ATRIAL FIBRILLATION Status: Chronic Current Visit: Yes Qualifiers: Atrial fibrillation type: chronic Qualified Code(s): I48.2 - Chronic atrial fibrillation (8) Current chronic use of systemic steroids SNOMED Code(s): 954783380, 295098756, 657031861 Code(s): Z79.52 - LONG-TERM (CURRENT) USE OF SYSTEMIC STEROIDS Status: Chronic Current Visit: Yes (9) Anemia of chronic disease SNOMED Code(s): 768406590 Code(s): D63.8 - ANEMIA IN OTHER CHRONIC DISEASES CLASSIFIED ELSEWHERE Status: Chronic Current Visit: Yes (10) Impaired mobility SNOMED Code(s): 97929156 Code(s): Z74.09 - OTHER REDUCED MOBILITY Status: Acute Priority: High Current Visit: Yes (11) Rheumatoid arthritis SNOMED Code(s): 06777336 Code(s): M06.9 - RHEUMATOID ARTHRITIS, UNSPECIFIED Status: Chronic Priority: High Current Visit: Yes Qualifiers: Rheumatoid arthritis location: multiple sites Rheumatoid factor presence: with rheumatoid factor Qualified Code(s): M05.79 - Rheumatoid arthritis with rheumatoid factor of multiple sites without organ or systems involvement (12) Hypertension SNOMED Code(s): 26775262 Code(s): I10 - ESSENTIAL (PRIMARY) HYPERTENSION Status: Chronic Current Visit: Yes Qualifiers: Hypertension type: unspecified secondary hypertension Qualified Code(s): I15.9 - Secondary hypertension, unspecified; I15 - Secondary hypertension (13) Chronic congestive heart failure SNOMED Code(s): 61306689 Code(s): I50.9 - HEART FAILURE, UNSPECIFIED Status: Chronic Priority: High Current Visit: No Qualifiers: Congestive heart failure type: combined Qualified Code(s): I50.42 - Chronic combined systolic (congestive) and diastolic (congestive) heart failure (14) Osteoarthritis SNOMED Code(s): 097946595 Code(s): M19.90 - UNSPECIFIED OSTEOARTHRITIS, UNSPECIFIED SITE Status: Chronic Priority: High Current Visit: No Qualifiers: Osteoarthritis location: multiple joints Osteoarthritis type: primary Qualified Code(s): M15.0 - Primary generalized (osteo)arthritis (15) Chronic back pain greater than 3 months duration SNOMED Code(s): 668229735 Code(s): M54.9 - DORSALGIA, UNSPECIFIED; G89.29 - OTHER CHRONIC PAIN Status : Chronic Current Visit: No - Problem List Review Problem List Initiated/Reviewed/Updated: Yes - My Orders Last 24 Hours: My Active Orders 04/09/17 11:39 Menthol/Methyl Salicylate [Icy Hot Cream] 0 gm TOP QID PRN 04/09/17 14:15 Peripheral IV Discontinue [OM.PC] Routine 04/10/17 08:00 predniSONE 60 mg PO DAILY 04/10/17 09:00 Nystatin [Nystop] 0 gm TOP DAILY - Assessment Assessment:: Please see above - Plan Plan:: COPD exacerbation along with pulmonary edema and left pleural effusion resolving nicely. Her incentive spirometry volumes have increased from 500-750 which is her baseline at home. She come in as her IS volume home was down to 300 prior to admission. She also has an acute UTI preliminary culture growing gram-negative rods likely Escherichia coli. This was obtained via straight catheter showing only 50,000-100,000 CFU, for which she is on Bactrim DS as well as prophylactically for the lungs regarding the COPD exacerbation. (She has numerous allergies). Started on oral steroid taper. Her A1c came back at 6.7. Accu-Cheks continue within acceptable range she has required only a couple units of NovoLog. Continue DuoNeb's 4 times a day and when necessary as well as incentive spirometry. This will be her regimen on discharge for the next week then back to usual dosing. She will continue with her CPAP at night. Weight has improved and Lasix has been discontinued. Blood pressure initially high on admission but with addition of her home medications this has come down nicely so will continue current dosing. Heart healthy low-sodium diet. she will be discharged today. she has good care via her . she will see her PCP within the next week.
[2017-04-10] MEDS: Hydrochlorothiazide 25 MG Tab PO SCH (10:38)
[2017-04-10] MEDS: Aspirin 81 MG Tab.EC PO SCH (10:38)
[2017-04-10] MEDS: Sulfamethoxazole/Trimethoprim 800-160 MG Tab PO SCH (10:39)
[2017-04-10] MEDS: Isosorbide Mononitrate 60 MG Tab.ER PO SCH (10:40)
[2017-04-10] MEDS: Sertraline 25 MG Tab PO SCH (10:40)
[2017-04-10] MEDS ORDERED: Magnesium Hydroxide 400 MG/5 ML Susp 30 ML Cup PO ONE (11:36)
[2017-04-10 11:43] VITALS: BP 152/68
--- NOTE | 2017-04-10 11:48 | CR ---
INDICATION: Difficulty breathing. CHEST: An AP upright view of the chest 04/08/2017, was compared with 05/05/2016 , and revealed evidence of exogenous obesity, as previously. Extensive Ramirez maria [place] carmen placements noted thoracolumbar spine. The heart appeared enlarged. The aorta is tortuous with calcification. Overlying EKG leads are noted. Density is noted, as previously, in the lateral portion of the left lower lung field. Very slightly less interstitial change is noted with continued mild prominence of upper lung field pulmonary vasculature, raising question of a mild degree of CHF. IMPRESSION: Except for suggestion of slightly decreased interstitial change, fairly stable appearance of the chest with mild or early CHF and inability to exclude pneumonia at the left lung base. MTDD
--- NOTE | 2017-04-10 11:51 | US ---
INDICATION: Swelling of left leg, question DVT. DUPLEX ULTRASOUND, LEFT LOWER EXTREMITY VEINS: Utilizing 2-D real time, duplex Doppler spectral analysis, and color flow imaging, examination of the left lower extremity veins was obtained and revealed normal blood flow and compression in the deep venous structures, as visualized. The lower half of the anterior tibial vein was not visualized, however. Additionally, valvular competence was not able to be evaluated. IMPRESSION: No evidence of deep venous thrombosis. MTDD
--- NOTE | 2017-04-10 13:28 | PCM.DCSUM1 ---
Discharge Summary - Hospital Course HPI Initial Comments: 76-year-old female that was admitted for increasing dyspnea debility and malaise. Comorbidities include CHF, asthma, combined COPD, chronic steroid therapy with history of rheumatism, numerous medications for hypertension. She has been battling symptoms for the past 5 days of increasing shortness of breath and dyspnea with exertion as well as noting her IS volumes have decreased from a baseline of 750 down to 300. she had not been seen in the clinic. - Discharge Data Discharge Date: 04/10/17 Discharge Disposition: Home, Self-Care 01 Condition: Good - Discharge Diagnosis/Problem(s) (1) COPD with exacerbation SNOMED Code(s): 584143465315382 ICD Code: J44.1 - CHRONIC OBSTRUCTIVE PULMONARY DISEASE W (ACUTE) EXACERBATION Status: Acute Current Visit: Yes (2) Acute on chronic congestive heart failure SNOMED Code(s): 46660609 ICD Code: I50.9 - HEART FAILURE, UNSPECIFIED Status: Acute Current Visit : Yes Qualifiers: Congestive heart failure type: unspecified congestive heart failure type Qualified Code(s): I50.9 - Heart failure, unspecified (3) Pleural effusion, left SNOMED Code(s): 47237987 ICD Code: J90 - PLEURAL EFFUSION, NOT ELSEWHERE CLASSIFIED Status: Acute Current Visit: Yes (4) UTI (urinary tract infection), bacterial SNOMED Code(s): 631078850 ICD Code: N39.0 - URINARY TRACT INFECTION, SITE NOT SPECIFIED; A49.9 - BACTERIAL INFECTION, UNSPECIFIED Status: Acute Priority: High Current Visit: Yes (5) COPD, severe SNOMED Code(s): 993198158 ICD Code: J44.9 - CHRONIC OBSTRUCTIVE PULMONARY DISEASE, UNSPECIFIED Status : Chronic Priority: High Current Visit: Yes (6) PATRICIA treated with BiPAP SNOMED Code(s): 06900692 ICD Code: G47.33 - OBSTRUCTIVE SLEEP APNEA (ADULT) (PEDIATRIC) Status: Chronic Current Visit: Yes (7) Atrial fibrillation SNOMED Code(s): 43481785 ICD Code: I48.91 - UNSPECIFIED ATRIAL FIBRILLATION Status: Chronic Current Visit: Yes Qualifiers: Atrial fibrillation type: chronic Qualified Code(s): I48.2 - Chronic atrial fibrillation (8) Current chronic use of systemic steroids SNOMED Code(s): 028839457, 688093133, 539252232 ICD Code: Z79.52 - RETIREMENT (CURRENT) USE OF SYSTEMIC STEROIDS Status: Chronic Current Visit: Yes (9) Anemia of chronic disease SNOMED Code(s): 435144759 ICD Code: D63.8 - ANEMIA IN OTHER CHRONIC DISEASES CLASSIFIED ELSEWHERE Status: Chronic Current Visit: Yes (10) Impaired mobility SNOMED Code(s): 94345351 ICD Code: Z74.09 - OTHER REDUCED MOBILITY Status: Acute Priority: High Current Visit: Yes (11) Rheumatoid arthritis SNOMED Code(s): 12067200 ICD Code: M06.9 - RHEUMATOID ARTHRITIS, UNSPECIFIED Status: Chronic Priority: High Current Visit: Yes Qualifiers: Rheumatoid arthritis location: multiple sites Rheumatoid factor presence: with rheumatoid factor Qualified Code(s): M05.79 - Rheumatoid arthritis with rheumatoid factor of multiple sites without organ or systems involvement (12) Hypertension SNOMED Code(s): 48601625 ICD Code: I10 - ESSENTIAL (PRIMARY) HYPERTENSION Status: Chronic Current Visit: Yes Qualifiers: Hypertension type: unspecified secondary hypertension Qualified Code(s): I15.9 - Secondary hypertension, unspecified; I15 - Secondary hypertension (13) Chronic congestive heart failure SNOMED Code(s): 40433159 ICD Code: I50.9 - HEART FAILURE, UNSPECIFIED Status: Chronic Priority: High Current Visit: No Qualifiers: Congestive heart failure type: combined Qualified Code(s): I50.42 - Chronic combined systolic (congestive) and diastolic (congestive) heart failure (14) Osteoarthritis SNOMED Code(s): 237839269 ICD Code: M19.90 - UNSPECIFIED OSTEOARTHRITIS, UNSPECIFIED SITE Status: Chronic Priority: High Current Visit: No Qualifiers: Osteoarthritis location: multiple joints Osteoarthritis type: primary Qualified Code(s): M15.0 - Primary generalized (osteo)arthritis (15) Chronic back pain greater than 3 months duration SNOMED Code(s): 490387089 ICD Code: M54.9 - DORSALGIA, UNSPECIFIED; G89.29 - OTHER CHRONIC PAIN Status: Chronic Current Visit: No - Patient Summary/Data Hospital Course: she was admitted and started on oral Bactrim for UTI and for prophylactic CAPD in a patient on chronic steroid therapy. Did start DuoNeb's along with steroid burst and taper. IV Lasix was given which did well to take fluid off. Over the course of stay she showed remarkable improvement with regards to dyspnea at rest and with exertion improved strength and overall well-being. Blood pressure was controlled with her home medication doses. Day of discharge she did admit she was ready to go home with her who takes very good care of her and she will follow-up in the clinic. - Patient Instructions Diet: Heart Healthy Diet Activity: As Tolerated, Cough & Deep Breathe Showering/Bathing: May Shower Notify Provider of: Fever, Nausea and/or Vomiting - Discharge Plan Prescriptions/Med Rec: Albuterol/Ipratropium [DuoNeb 3.0-0.5 MG/3 ML] 3 ml INH Q4HR PRN #1 box PRN Reason: Dyspnea Albuterol/Ipratropium [DuoNeb 3.0-0.5 MG/3 ML] 3 ml IH Q8H #1 box Docusate Sodium [Colace] 100 mg PO BID PRN #60 cap PRN Reason: Constipation predniSONE 60 mg PO DAILY #1 tablet Sulfamethoxazole/Trimethoprim [Bactrim Ds Tablet] 1 each PO BID #6 tablet Home Medications: Home Meds ALPRAZolam [Xanax] 0.25 mg PO BID PRN 05/05/16 [History] Albuterol [Ventolin HFA] 2 puff IH Q4H PRN 05/05/16 [History] Diazepam [Valium] 5 mg PO BEDTIME 05/05/16 [History] Hydroxychloroquine Sulfate [Plaquenil] 200 mg PO BEDTIME 05/05/16 [History] Isosorbide Mononitrate [Imdur] 60 mg PO DAILY@1000 05/05/16 [History] Lisinopril 40 mg PO DAILY 05/05/16 [History] Multivit-Min/Iron Fum/Folic AC [Zerke-Nuhvjra-Sprhotuc Tablet] 1 tab PO DAILY@ 1000 05/05/16 [History] Nebivolol [Bystolic] 20 mg PO BEDTIME 05/05/16 [History] Omeprazole Magnesium [Prilosec Otc] 20 mg PO DAILY 05/05/16 [History] Sertraline [Zoloft] 25 mg PO DAILY 05/05/16 [History] rOPINIRole [Requip] 0.5 mg PO BEDTIME 05/05/16 [History] Aspirin [Halfprin] 81 mg PO DAILY #90 tab.ec 05/07/16 [Rx] Loperamide [Imodium] 2 mg PO Q4H PRN #60 cap 05/07/16 [Rx] amLODIPine [Norvasc] 10 mg PO BEDTIME #90 tab 05/07/16 [Rx] Ca/D3/Mag#11/Zinc/Ski Lift Operator/[place]/Bor [Caltrate 600+D Plus Tablet] 1 tab PO DAILY@12 [History] Hydrochlorothiazide 25 mg PO DAILY 04/08/17 [History] Hydrocodone/Acetaminophen [Hydrocodon-Acetaminophen 5-325] 1 - 2 tab PO Q4HR PRN 04/08/17 [History] Hydrocortisone [Procto-Med Hc] 1 applic RECTAL BID PRN 04/08/17 [History] Menthol [Biofreeze] 1 applic TP BID PRN 04/08/17 [History] Nystatin 1 applic TOP ASDIRECTED 04/08/17 [History] Trolamine Salicylate [Aspercreme] 1 applic TP BID 04/08/17 [History] Albuterol/Ipratropium [DuoNeb 3.0-0.5 MG/3 ML] 3 ml IH Q8H #1 box 04/10/17 [Rx] Albuterol/Ipratropium [DuoNeb 3.0-0.5 MG/3 ML] 3 ml INH Q4HR PRN #1 box [Rx] Ascorbic Acid [Vitamin C] 500 mg PO DAILY 04/10/17 [History] Diclofenac ([place]) 1 tab PO BID 04/10/17 [History] Docusate Sodium [Colace] 100 mg PO BID PRN #60 cap 04/10/17 [Rx] Nystatin [Nystop] 1 applic TOP ASDIRECTED 04/10/17 [History] Polyvinyl Alcohol/Povidone [Artificial Tears Drops] 1 drop EYEBOTH Q4H PRN 04/10 [History] Sulfamethoxazole/Trimethoprim [Bactrim Ds Tablet] 1 each PO BID #6 tablet [Rx] predniSONE 60 mg PO DAILY #1 tablet 04/10/17 [Rx] predniSONE [Prednisone] 5 mg PO DAILY #60 04/10/17 [Rx] Referrals: Omar Plunkett MD [Primary Care Provider] - - General Info Date of Service: 04/10/17 Subjective Update: patient is here in the room sitting up eating. Her is with her today. She states she is ready to go home. She is back to her baseline with her incentive spirometry. She states her breathing is much improved. She denies shortness of breath, chest pain or pressure, chewing or swallowing difficulty, her cough is loosening and clear sputum. No fevers or chills, denies nausea, there is been no vomiting, she denies abdominal pain. Comorbidities have been controlled and treated inpatient. She is receiving Bactrim which she is tolerating. She is also tolerating oral prednisone which was started yesterday. IV Lasix did take fluid off which helped. She and her believe she is back to her baseline and wished to go home today. They do utilize [facility] for nebulizations and would like to continue to do so. She would like to see Nadja Lue[facility] which she should do in the next 7-10 days for follow-up. - Review of Systems Systems Review Comment: please see history of present illness for review of systems - Patient Data Vitals - Most Recent: Vital Signs (72 hours) 04/08/17 04/08/17 04/08/17 13:07 14:37 15:55 Temperature [ Axillary] Temperature [ 98.8 F Oral] Pulse, Peripheral Pulse, 72 Peripheral [ Right Pulse Oximetry] Respiratory 25 H Rate Blood Pressure Blood Pressure 166/77 H [Right Upper Arm] O2 Sat by Pulse 98 Oximetry O2 Sat by Pulse Oximetry [CPAP ] O2 Sat by Pulse 96 91 L Oximetry [Room Air] 04/08/17 04/08/17 04/08/17 16:10 16:15 20:00 Temperature [ Axillary] Temperature [ 98.3 F 98.3 F Oral] Pulse, Peripheral Pulse, 75 74 Peripheral [ Right Pulse Oximetry] Respiratory 18 17 Rate Blood Pressure Blood Pressure 176/96 H 152/81 H [Right Upper Arm] O2 Sat by Pulse 91 L 91 L 88 L Oximetry O2 Sat by Pulse Oximetry [CPAP ] O2 Sat by Pulse Oximetry [Room Air] 04/08/17 04/08/17 04/08/17 20:59 21:00 21:29 Temperature [ Axillary] Temperature [ Oral] Pulse, 71 Peripheral Pulse, 78 Peripheral [ Right Pulse Oximetry] Respiratory Rate Blood Pressure 152/81 H 152/81 H Blood Pressure [Right Upper Arm] O2 Sat by Pulse Oximetry O2 Sat by Pulse Oximetry [CPAP ] O2 Sat by Pulse 88 L Oximetry [Room Air] 04/08/17 04/08/17 04/09/17 23:57 23:59 04:00 Temperature [ 98.4 F 97.4 F Axillary] Temperature [ Oral] Pulse, Peripheral Pulse, 78 76 65 Peripheral [ Right Pulse Oximetry] Respiratory 17 17 Rate Blood Pressure Blood Pressure 152/87 H 145/92 H [Right Upper Arm] O2 Sat by Pulse 96 96 Oximetry O2 Sat by Pulse 96 Oximetry [CPAP ] O2 Sat by Pulse Oximetry [Room Air] 04/09/17 04/09/17 04/09/17 08:00 09:06 12:00 Temperature [ 97 F Axillary] Temperature [ 98.2 F Oral] Pulse, Peripheral Pulse, 70 58 L 80 Peripheral [ Right Pulse Oximetry] Respiratory 18 18 Rate Blood Pressure Blood Pressure 170/84 H 156/76 H [Right Upper Arm] O2 Sat by Pulse 96 96 Oximetry O2 Sat by Pulse Oximetry [CPAP ] O2 Sat by Pulse 94 L Oximetry [Room Air] 04/09/17 04/09/17 04/09/17 12:21 15:55 16:00 Temperature [ Axillary] Temperature [ 98.5 F Oral] Pulse, Peripheral Pulse, 60 92 Peripheral [ Right Pulse Oximetry] Respiratory 18 Rate Blood Pressure Blood Pressure 140/72 [Right Upper Arm] O2 Sat by Pulse 96 Oximetry O2 Sat by Pulse Oximetry [CPAP ] O2 Sat by Pulse 94 L 97 Oximetry [Room Air] 04/09/17 04/09/17 04/09/17 20:00 20:01 20:21 Temperature [ Axillary] Temperature [ 98.1 F Oral] Pulse, 67 Peripheral Pulse, 67 Peripheral [ Right Pulse Oximetry] Respiratory 18 Rate Blood Pressure 133/69 133/69 Blood Pressure 133/69 [Right Upper Arm] O2 Sat by Pulse 95 Oximetry O2 Sat by Pulse Oximetry [CPAP ] O2 Sat by Pulse Oximetry [Room Air] 04/09/17 04/10/17 04/10/17 21:00 01:00 04:00 Temperature [ Axillary] Temperature [ 97.8 F Oral] Pulse, Peripheral Pulse, 67 Peripheral [ Right Pulse Oximetry] Respiratory 18 18 Rate Blood Pressure Blood Pressure 118/67 [Right Upper Arm] O2 Sat by Pulse 96 Oximetry O2 Sat by Pulse Oximetry [CPAP ] O2 Sat by Pulse 95 Oximetry [Room Air] 04/10/17 04/10/17 04/10/17 07:25 08:00 11:10 Temperature [ Axillary] Temperature [ 98.2 F Oral] Pulse, Peripheral Pulse, 68 73 72 Peripheral [ Right Pulse Oximetry] Respiratory 16 Rate Blood Pressure Blood Pressure 152/68 H [Right Upper Arm] O2 Sat by Pulse 92 L Oximetry O2 Sat by Pulse Oximetry [CPAP ] O2 Sat by Pulse 95 95 Oximetry [Room Air] Weight - Most Recent: 88.859 kg I&O - Last 24 hours: Intake & Output 04/08/17 04/09/17 04/10/17 04/11/17 06:59 06:59 06:59 06:59 Intake Total 100 275 610 Output Total 925 1170 Balance -825 -895 610 Lab Results - Last 24 hrs: Laboratory Tests 04/08/17 04/08/17 04/08/17 Range/Units 13:30 13:30 13:30 WBC 9.4 (4.5-12.0) X10-3/uL RBC 4.27 (3.23-5.20) x10(6)uL Hgb 9.7 L (11.5-15.5) g/dL Hct 31.4 (30.0-51.3) % MCV 73.4 L (80-96) fL MCH 22.6 L (27.7-33.6) pg MCHC 30.8 L (32.2-35.4) g/dL RDW 16.1 H (11.5-15.5) % Plt Count 238 (125-369) X10(3)uL MPV 7.6 (7.4-10.4) fL Neut % (Auto) (46-82) % Lymph % (Auto) (13-37) % [place] % (Auto) (4-12) % Eos % (Auto) (1.0-5.0) % Baso % (Auto) (0-2) % Neut # (Auto) (1.6-8.3) # Lymph # (Auto) (0.6-5.0) # [place] # (Auto) (0.0-1.3) # Eos # (Auto) (0.0-0.8) # Baso # (Auto) (0.0-0.2) # Add Manual Diff Yes Neutrophils % (Manual) 87 H (46-82) % Lymphocytes % (Manual) 6 L (13-37) % Monocytes % (Manual) 7 (4-12) % Hypochromasia Few Anisocytosis Few Microcytosis Moderate H PT 11.4 H (8.7-11.1) INR 1.13 (0.89-1.13) Sodium 140 (135-145) mmol/L Potassium 3.8 (3.5-5.3) mmol/L Chloride 102 (100-110) mmol/L Carbon Dioxide 29 (21-32) mmol/L BUN 22 H (7-18) mg/dL Creatinine 0.7 (0.55-1.02) mg/dL Est Cr Clr Drug Dosing 55.68 mL/min Estimated GFR (MDRD) > 60 (>60) BUN/Creatinine Ratio 31.4 H (9-20) Glucose 158 H (80-116) mg/dL POC Glucose (80-116) mg/dL Hemoglobin A1c (4.5-6.2) % Calcium 9.6 (8.6-10.2) mg/dL Creatine Kinase (60-160) IU/L Troponin I (<0.017-0.056) ng/mL NT-Pro-B Natriuret Pep (<=450) pg/mL Urine Color (YELLOW) Urine Appearance (CLEAR) Urine pH (5.0-6.5) Ur Specific [place] (1.010-1.025) Urine Protein (NEGATIVE) mg/dL Urine Glucose (UA) (NEGATIVE) mg/dL Urine Ketones (NEGATIVE) mg/dL Urine Occult Blood (NEGATIVE) Urine Nitrite (NEGATIVE) Urine Bilirubin (NEGATIVE) Urine Urobilinogen (NEGATIVE) mg/dL Ur Leukocyte Esterase (NEGATIVE) Urine RBC (0) Urine WBC (0) Ur Squamous Epith Cells (NS,R,O) Amorphous Sediment Urine Bacteria (NS) 04/08/17 04/08/17 04/08/17 Range/Units 13:30 13:30 13:30 WBC (4.5-12.0) X10-3/uL RBC (3.23-5.20) x10(6)uL Hgb (11.5-15.5) g/dL Hct (30.0-51.3) % MCV (80-96) fL MCH (27.7-33.6) pg MCHC (32.2-35.4) g/dL RDW (11.5-15.5) % Plt Count (125-369) X10(3)uL MPV (7.4-10.4) fL Neut % (Auto) (46-82) % Lymph % (Auto) (13-37) % [place] % (Auto) (4-12) % Eos % (Auto) (1.0-5.0) % Baso % (Auto) (0-2) % Neut # (Auto) (1.6-8.3) # Lymph # (Auto) (0.6-5.0) # [place] # (Auto) (0.0-1.3) # Eos # (Auto) (0.0-0.8) # Baso # (Auto) (0.0-0.2) # Add Manual Diff Neutrophils % (Manual) (46-82) % Lymphocytes % (Manual) (13-37) % Monocytes % (Manual) (4-12) % Hypochromasia Anisocytosis Microcytosis PT (8.7-11.1) INR (0.89-1.13) Sodium (135-145) mmol/L Potassium (3.5-5.3) mmol/L Chloride (100-110) mmol/L Carbon Dioxide (21-32) mmol/L BUN (7-18) mg/dL Creatinine (0.55-1.02) mg/dL Est Cr Clr Drug Dosing mL/min Estimated GFR (MDRD) (>60) BUN/Creatinine Ratio (9-20) Glucose (80-116) mg/dL POC Glucose (80-116) mg/dL Hemoglobin A1c (4.5-6.2) % Calcium (8.6-10.2) mg/dL Creatine Kinase 46 L (60-160) IU/L Troponin I < 0.017 L (<0.017-0.056) ng/mL NT-Pro-B Natriuret Pep 1859 H* (<=450) pg/mL Urine Color (YELLOW) Urine Appearance (CLEAR) Urine pH (5.0-6.5) Ur Specific [place] (1.010-1.025) Urine Protein (NEGATIVE) mg/dL Urine Glucose (UA) (NEGATIVE) mg/dL Urine Ketones (NEGATIVE) mg/dL Urine Occult Blood (NEGATIVE) Urine Nitrite (NEGATIVE) Urine Bilirubin (NEGATIVE) Urine Urobilinogen (NEGATIVE) mg/dL Ur Leukocyte Esterase (NEGATIVE) Urine RBC (0) Urine WBC (0) Ur Squamous Epith Cells (NS,R,O) Amorphous Sediment Urine Bacteria (NS) 04/08/17 04/09/17 04/09/17 Range/Units 13:55 06:20 06:20 WBC (4.5-12.0) X10-3/uL RBC (3.23-5.20) x10(6)uL Hgb (11.5-15.5) g/dL Hct (30.0-51.3) % MCV (80-96) fL MCH (27.7-33.6) pg MCHC (32.2-35.4) g/dL RDW (11.5-15.5) % Plt Count (125-369) X10(3)uL MPV (7.4-10.4) fL Neut % (Auto) (46-82) % Lymph % (Auto) (13-37) % [place] % (Auto) (4-12) % Eos % (Auto) (1.0-5.0) % Baso % (Auto) (0-2) % Neut # (Auto) (1.6-8.3) # Lymph # (Auto) (0.6-5.0) # [place] # (Auto) (0.0-1.3) # Eos # (Auto) (0.0-0.8) # Baso # (Auto) (0.0-0.2) # Add Manual Diff Neutrophils % (Manual) (46-82) % Lymphocytes % (Manual) (13-37) % Monocytes % (Manual) (4-12) % Hypochromasia Anisocytosis Microcytosis PT (8.7-11.1) INR (0.89-1.13) Sodium 141 (135-145) mmol/L Potassium 3.8 (3.5-5.3) mmol/L Chloride 102 (100-110) mmol/L Carbon Dioxide 30 (21-32) mmol/L BUN 26 H (7-18) mg/dL Creatinine 0.7 (0.55-1.02) mg/dL Est Cr Clr Drug Dosing 55.68 mL/min Estimated GFR (MDRD) > 60 (>60) BUN/Creatinine Ratio 37.1 H (9-20) Glucose 194 H (80-116) mg/dL POC Glucose (80-116) mg/dL Hemoglobin A1c 6.6 H (4.5-6.2) % Calcium 9.7 (8.6-10.2) mg/dL Creatine Kinase (60-160) IU/L Troponin I (<0.017-0.056) ng/mL NT-Pro-B Natriuret Pep (<=450) pg/mL Urine Color Yellow (YELLOW) Urine Appearance Clear (CLEAR) Urine pH 6.0 (5.0-6.5) Ur Specific [place] 1.015 (1.010-1.025) Urine Protein Negative (NEGATIVE) mg/dL Urine Glucose (UA) Normal (NEGATIVE) mg/dL Urine Ketones Negative (NEGATIVE) mg/dL Urine Occult Blood Negative (NEGATIVE) Urine Nitrite Negative (NEGATIVE) Urine Bilirubin Negative (NEGATIVE) Urine Urobilinogen Normal (NEGATIVE) mg/dL Ur Leukocyte Esterase Moderate H (NEGATIVE) Urine RBC 0-5 (0) Urine WBC 5-10 (0) Ur Squamous Epith Cells Few H (NS,R,O) Amorphous Sediment Moderate Urine Bacteria Moderate H (NS) 04/09/17 04/09/17 04/10/17 Range/Units 17:23 20:16 06:20 WBC 11.0 (4.5-12.0) X10-3/uL RBC 4.07 (3.23-5.20) x10(6)uL Hgb 9.2 L (11.5-15.5) g/dL Hct 29.9 L (30.0-51.3) % MCV 73.6 L (80-96) fL MCH 22.6 L (27.7-33.6) pg MCHC 30.6 L (32.2-35.4) g/dL RDW 16.2 H (11.5-15.5) % Plt Count 255 (125-369) X10(3)uL MPV 7.2 L (7.4-10.4) fL Neut % (Auto) 81.0 (46-82) % Lymph % (Auto) 10.3 L (13-37) % [place] % (Auto) 8.3 (4-12) % Eos % (Auto) 0 L (1.0-5.0) % Baso % (Auto) 0 (0-2) % Neut # (Auto) 9.0 H (1.6-8.3) # Lymph # (Auto) 1.1 (0.6-5.0) # [place] # (Auto) 0.9 (0.0-1.3) # Eos # (Auto) 0.0 (0.0-0.8) # Baso # (Auto) 0.0 (0.0-0.2) # Add Manual Diff Neutrophils % (Manual) (46-82) % Lymphocytes % (Manual) (13-37) % Monocytes % (Manual) (4-12) % Hypochromasia Anisocytosis Microcytosis PT (8.7-11.1) INR (0.89-1.13) Sodium (135-145) mmol/L Potassium (3.5-5.3) mmol/L Chloride (100-110) mmol/L Carbon Dioxide (21-32) mmol/L BUN (7-18) mg/dL Creatinine (0.55-1.02) mg/dL Est Cr Clr Drug Dosing mL/min Estimated GFR (MDRD) (>60) BUN/Creatinine Ratio (9-20) Glucose (80-116) mg/dL POC Glucose 195 H 214 H (80-116) mg/dL Hemoglobin A1c (4.5-6.2) % Calcium (8.6-10.2) mg/dL Creatine Kinase (60-160) IU/L Troponin I (<0.017-0.056) ng/mL NT-Pro-B Natriuret Pep (<=450) pg/mL Urine Color (YELLOW) Urine Appearance (CLEAR) Urine pH (5.0-6.5) Ur Specific [place] (1.010-1.025) Urine Protein (NEGATIVE) mg/dL Urine Glucose (UA) (NEGATIVE) mg/dL Urine Ketones (NEGATIVE) mg/dL Urine Occult Blood (NEGATIVE) Urine Nitrite (NEGATIVE) Urine Bilirubin (NEGATIVE) Urine Urobilinogen (NEGATIVE) mg/dL Ur Leukocyte Esterase (NEGATIVE) Urine RBC (0) Urine WBC (0) Ur Squamous Epith Cells (NS,R,O) Amorphous Sediment Urine Bacteria (NS) 04/10/17 04/10/17 Range/Units 06:20 11:35 WBC (4.5-12.0) X10-3/uL RBC (3.23-5.20) x10(6)uL Hgb (11.5-15.5) g/dL Hct (30.0-51.3) % MCV (80-96) fL MCH (27.7-33.6) pg MCHC (32.2-35.4) g/dL RDW (11.5-15.5) % Plt Count (125-369) X10(3)uL MPV (7.4-10.4) fL Neut % (Auto) (46-82) % Lymph % (Auto) (13-37) % [place] % (Auto) (4-12) % Eos % (Auto) (1.0-5.0) % Baso % (Auto) (0-2) % Neut # (Auto) (1.6-8.3) # Lymph # (Auto) (0.6-5.0) # [place] # (Auto) (0.0-1.3) # Eos # (Auto) (0.0-0.8) # Baso # (Auto) (0.0-0.2) # Add Manual Diff Neutrophils % (Manual) (46-82) % Lymphocytes % (Manual) (13-37) % Monocytes % (Manual) (4-12) % Hypochromasia Anisocytosis Microcytosis PT (8.7-11.1) INR (0.89-1.13) Sodium 145 (135-145) mmol/L Potassium 3.5 (3.5-5.3) mmol/L Chloride 104 (100-110) mmol/L Carbon Dioxide 30 (21-32) mmol/L BUN 42 H D (7-18) mg/dL Creatinine 1.0 (0.55-1.02) mg/dL Est Cr Clr Drug Dosing 38.97 mL/min Estimated GFR (MDRD) 54 L (>60) BUN/Creatinine Ratio 42.0 H (9-20) Glucose 142 H (80-116) mg/dL POC Glucose 240 H (80-116) mg/dL Hemoglobin A1c (4.5-6.2) % Calcium 9.6 (8.6-10.2) mg/dL Creatine Kinase (60-160) IU/L Troponin I (<0.017-0.056) ng/mL NT-Pro-B Natriuret Pep (<=450) pg/mL Urine Color (YELLOW) Urine Appearance (CLEAR) Urine pH (5.0-6.5) Ur Specific [place] (1.010-1.025) Urine Protein (NEGATIVE) mg/dL Urine Glucose (UA) (NEGATIVE) mg/dL Urine Ketones (NEGATIVE) mg/dL Urine Occult Blood (NEGATIVE) Urine Nitrite (NEGATIVE) Urine Bilirubin (NEGATIVE) Urine Urobilinogen (NEGATIVE) mg/dL Ur Leukocyte Esterase (NEGATIVE) Urine RBC (0) Urine WBC (0) Ur Squamous Epith Cells (NS,R,O) Amorphous Sediment Urine Bacteria (NS) MEET Results - Last 24 hrs: Microbiology 04/08/17 13:55 Urine, Catheterized Urine Culture - Preliminary Gram Negative Rods Med Orders - Current: Current Medications Hydrocodone Bitart/Acetaminophen ([place] 325-5 Mg) 1 tab PO Q4H PRN PRN Reason: Pain Albuterol/Ipratropium (Duoneb 3.0-0.5 Mg/3 Ml) 3 ml NEB QIDRT [facility] Last Admin: 04/10/17 10:47 Dose: 3 ml Alprazolam (Xanax) 0.25 mg PO BID PRN PRN Reason: Anxiety Amlodipine Besylate (Norvasc) 10 mg PO BEDTIME [facility] Last Admin: 04/09/17 20:01 Dose: 10 mg Aspirin (Halfprin) 81 mg PO DAILY [facility] Last Admin: 04/10/17 10:38 Dose: 81 mg Diazepam (Valium.) 5 mg PO BEDTIME [facility] Last Admin: 04/09/17 20:01 Dose: 5 mg Docusate Sodium (Colace) 100 mg PO BID PRN PRN Reason: Constipation Hydrochlorothiazide (Hydrochlorothiazide) 25 mg PO DAILY [facility] Last Admin: 04/10/17 10:38 Dose: 25 mg Hydroxychloroquine Sulfate (Plaquenil) 200 mg PO BEDTIME [facility] Last Admin: 04/09/17 20:20 Dose: 200 mg Insulin Aspart (Novolog) 0 unit SUBCUT QIDACANDBED [facility] PRN Reason: Protocol Last Admin: 04/10/17 11:52 Dose: 2 unit Isosorbide Mononitrate (Imdur) 60 mg PO DAILY@1000 [facility] Last Admin: 04/10/17 10:40 Dose: 60 mg Lisinopril (Prinivil) 40 mg PO DAILY [facility] Last Admin: 04/10/17 10:39 Dose: 40 mg Methyl Salicylate (Icy Hot Cream) 0 gm TOP QID PRN PRN Reason: pain in legs and feet Last Admin: 04/09/17 14:58 Dose: 1 applic Nebivolol (Bystolic) 20 mg PO BEDTIME [facility] Last Admin: 04/09/17 20:21 Dose: 20 mg Nystatin (Nystop) 0 gm TOP DAILY [facility] Last Admin: 04/10/17 10:38 Dose: 1 applic Prednisone (Prednisone) 60 mg PO DAILY [facility] PRN Reason: Taper Stop: 04/20/17 07:59 Last Admin: 04/10/17 10:39 Dose: 60 mg Sertraline HCl (Zoloft) 25 mg PO DAILY [facility] Last Admin: 04/10/17 10:40 Dose: 25 mg Trimethoprim/Sulfamethoxazole (Septra Ds) 1 tab PO BID [facility] Last Admin: 04/10/17 10:39 Dose: 1 tab Discontinued Medications Albuterol/Ipratropium (Duoneb 3.0-0.5 Mg/3 Ml) 3 ml NEB ONETIME ONE Stop: 04/08/17 14:28 Last Admin: 04/08/17 14:37 Dose: 3 ml Furosemide (Lasix) 20 mg IVPUSH ONETIME ONE Stop: 04/08/17 16:03 Last Admin: 04/08/17 16:53 Dose: 20 mg Furosemide (Lasix) 40 mg IVPUSH Q12H [facility] Last Admin: 04/09/17 05:49 Dose: 40 mg Levofloxacin (Levaquin) 500 mg PO ONETIME STA Stop: 04/08/17 14:46 Last Admin: 04/08/17 14:52 Dose: Not Given Magnesium Hydroxide (Milk Of Magnesia) 30 ml PO ONETIME ONE Stop: 04/10/17 11:37 Last Admin: 04/10/17 12:11 Dose: Not Given Methylprednisolone Sodium Succinate (Solu-Medrol) 62.5 mg IV Q6H [facility] Last Admin: 04/09/17 13:18 Dose: Not Given Methylprednisolone Sodium Succinate (Solu-Medrol) Confirm Administered Dose 40 mg .ROUTE .STK-MED ONE Stop: 04/08/17 18:53 Last Admin: 04/09/17 08:53 Dose: Not Given Nystatin (Nystop) 0 gm TOP ASDIRECTED [facility] Last Admin: 04/09/17 10:30 Dose: 1 applicful Ondansetron HCl (Zofran) 4 mg IV Q4H PRN PRN Reason: Nausea/Vomiting Sodium Chloride (Saline Flush) 10 ml FLUSH ASDIRECTED PRN PRN Reason: Keep Vein Open Last Admin: 04/09/17 05:51 Dose: 10 ml Sodium Chloride (Saline Flush) 10 ml FLUSH ASDIRECTED PRN PRN Reason: Keep Vein Open Last Admin: 04/09/17 00:21 Dose: 10 ml Trimethoprim/Sulfamethoxazole (Septra Ds) 1 tab PO ONETIME ONE Stop: 04/08/17 14:50 Last Admin: 04/08/17 14:53 Dose: 1 tab - Exam Physical Findings Comments:: General: Alert, Oriented, Cooperative HEENT: Conjunctiva Clear, Hearing Intact, Mucosa Moist & Sage Neck: Trachea Midline. No: JVD Lungs: Normal Respiratory Effort, Decreased Breath Sounds (Left lower lobe however deeper aeration bilateral appreciated), Rales (Bilateral lower lobes minimal at best), no wheezing today Cardiovascular: Regular Rate, Irregular Rhythm, no murmur GI/Abdominal Exam: Normal Bowel Sounds, Soft, Non-Tender, Hernia (Small 1 cm umbilical hernia nonincarcerated also left abdominal wall diastases roughly 3 cm x 3 cm palpable.) Extremities: Other (She has lower extremity edema at the knees roughly tr bilateral and symmetric, wearing teds compression stockings up to the knees tolerating these well.. She has numerous skin discoloration secondary to minocycline in the past. No active joint redness tenderness or swelling. There is no calf tenderness negative Homans. Neuro Extensive - Mental Status: Normal Mood/Affect. No focal deficits neurologically. Psychiatric: No increased anxiety *Q Meaningful Use (DIS) - VTE *Q VTE Criteria *Q: VTE Pharmacological Contraindications *Q: Risk of Bleeding - Stroke *Q Stroke Criteria *Q: - AMI *Q AMI Criteria *Q:
== END 2017-04-10 14:33 | disposition home or self-care (01) | DRG 190 ==
LOC: FB.ED 12:58 → UNDOADMOB 15:55 → FB.MS 15:55 → OBSVTOIN 18:13
PROVIDERS: ADMIT Family Medicine; ATTEND Family Medicine
DX: J44.1 Chronic obstructive pulmonary disease with (acute) exacerbation (principal); I50.43 Acute on chronic combined systolic (congestive) and diastolic (congestive) heart failure; N39.0 Urinary tract infection, site not specified; I11.0 Hypertensive heart disease with heart failure; B96.1 Klebsiella pneumoniae [K. pneumoniae] as the cause of diseases classified elsewhere; I48.2 Chronic atrial fibrillation; M06.9 Rheumatoid arthritis, unspecified; R60.0 Localized edema; G47.30 Sleep apnea, unspecified; Z87.891 Personal history of nicotine dependence; Z79.52 Long term (current) use of systemic steroids; D63.8 Anemia in other chronic diseases classified elsewhere; R06.02 Shortness of breath; Z74.09 Other reduced mobility; D53.8 Other specified nutritional anemias; M54.9 Dorsalgia, unspecified; G89.29 Other chronic pain; Z86.14 Personal history of Methicillin resistant Staphylococcus aureus infection; F32.9 Major depressive disorder, single episode, unspecified; F41.9 Anxiety disorder, unspecified; M15.0 Primary generalized (osteo)arthritis; E78.00 Pure hypercholesterolemia, unspecified; H54.7 Unspecified visual loss; Z87.440 Personal history of urinary (tract) infections; Z88.1 Allergy status to other antibiotic agents; Z88.8 Allergy status to other drugs, medicaments and biological substances; Z79.82 Long term (current) use of aspirin; Z96.659 Presence of unspecified artificial knee joint
CPT/HCPCS: 36415; 71010; 80048; 81001; 82550; 83880; 84484; 85025; 85610; 87086; 87088; 87186; 93005; 93971; 94640; 99285; A9270; J1940; J7050 ×2; J7620; 82962; 83036; 93010; 94150; J2920

== ENCOUNTER 2017-06-26 08:52 | Inpatient (IN) | payer MEDICARE, OTHER ==
--- NOTE | 2017-06-26 09:47 | EDM.PDOC ---
ED HPI GENERAL MEDICAL PROBLEM - General Chief Complaint: Gastrointestinal Problem Stated Complaint: NASAUA Time Seen by Provider: 06/26/17 09:05 Source of Information: Reports: Patient, Family History Limitations: Reports: No Limitations - History of Present Illness INITIAL COMMENTS - FREE TEXT/NARRATIVE: c/o weak and diarrhea x 1d no pain, begun on levofloxacin 2d empirically by for strong odor to urine had diarrhea yesterday at 3p, 6p and MN as well as again this AM. green with an odor poor appetite x 1d, asking for water now very weak this AM, unable to sit up or lift her head this AM, is conversant PCP is [place] in [place] [facility] On 05[facility]16 UC grew Enterococcus resistant to cipro, levo, gent, TET and sensitive to amp, dapto, nitro, PCN, rifampin, vanco. On UC grew Kleb Pneumonia resistant moxifloxacin, intermediate to nitrofur, sensitive to levoflox and all others. on pred and Plaquenil daily for RA - Related Data Allergies Allergy/AdvReac Type Severity Reaction Status Date / Time cephalexin Allergy Confusion Verified 06/26/17 09:08 clonidine Allergy Nausea Verified 06/26/17 09:08 diclofenac [From Voltaren] Allergy Paralysis Verified 06/26/17 09:08 naproxen [From Naprosyn] Allergy Paralysis Verified 06/26/17 09:08 Home Meds: Home Meds ALPRAZolam [Xanax] 0.25 mg PO BID PRN 05/05/16 [History] Albuterol [Ventolin HFA] 2 puff IH Q4H PRN 05/05/16 [History] Diazepam [Valium] 5 mg PO BEDTIME 05/05/16 [History] Hydroxychloroquine Sulfate [Plaquenil] 200 mg PO BEDTIME 05/05/16 [History] Isosorbide Mononitrate [Imdur] 60 mg PO DAILY@1000 05/05/16 [History] Lisinopril 40 mg PO DAILY 05/05/16 [History] Multivit-Min/Iron Fum/Folic AC [Wrmil-Fezzqad-Mruglxmb Tablet] 1 tab PO DAILY@ 1000 05/05/16 [History] Omeprazole Magnesium [Prilosec Otc] 20 mg PO DAILY 05/05/16 [History] Sertraline [Zoloft] 25 mg PO DAILY 05/05/16 [History] rOPINIRole [Requip] 0.5 mg PO BEDTIME 05/05/16 [History] Aspirin [Halfprin] 81 mg PO DAILY #90 tab.ec 05/07/16 [Rx] Loperamide [Imodium] 2 mg PO Q4H PRN #60 cap 05/07/16 [Rx] amLODIPine [Norvasc] 10 mg PO BEDTIME #90 tab 05/07/16 [Rx] Ca/D3/Mag#11/Zinc/Mesh Man/Preston/Bor [Caltrate 600+D Plus Tablet] 1 tab PO DAILY@12 [History] Hydrochlorothiazide 25 mg PO DAILY 04/08/17 [History] Hydrocodone/Acetaminophen [Hydrocodon-Acetaminophen 5-325] 1 - 2 tab PO Q4HR PRN 04/08/17 [History] Hydrocortisone [Procto-Med Hc] 1 applic RECTAL BID PRN 04/08/17 [History] Trolamine Salicylate [Aspercreme] 1 applic TP BID 04/08/17 [History] Albuterol/Ipratropium [DuoNeb 3.0-0.5 MG/3 ML] 3 ml INH Q4HR PRN #1 box [Rx] Ascorbic Acid [Vitamin C] 500 mg PO DAILY 04/10/17 [History] Diclofenac ([place]) 1 tab PO BID 04/10/17 [History] Nystatin [Nystop] 1 applic TOP ASDIRECTED 04/10/17 [History] Polyvinyl Alcohol/Povidone [Artificial Tears Drops] 1 drop EYEBOTH Q4H PRN 04/10 [History] predniSONE [Prednisone] 5 mg PO DAILY #60 04/10/17 [Rx] Levofloxacin [Levofloxacin] 500 mg PO DAILY 06/26/17 [History] Past Medical History HEENT History: Reports: Impaired Vision, Other (See Below) Other HEENT History: 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, 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 Cardiovascular History: Reports: Afib, High Cholesterol, Hypertension, SOB on Exertion Respiratory History: Reports: Asthma, Sleep Apnea, SOB, Other (See Below) Other Respiratory History: wears c pap at night Gastrointestinal History: Reports: Hemorrhoids Genitourinary History: Reports: UTI, Recurrent [employer] History: Reports: Other OB/BYN History: 3 children Musculoskeletal History: Reports: Arthritis, Osteoarthritis, RA, Other (See Below) Other Musculoskeletal History: rods in back neck all the way down her back Neurological History: Reports: Vertigo Psychiatric History: Reports: Anxiety, Depression Endocrine/Metabolic History: Reports: Osteoporosis Hematologic History: Reports: Blood Transfusion(s) Immunologic History: Reports: None Oncologic (Cancer) History: Reports: None Dermatologic History: Reports: None - Infectious Disease History Infectious Disease History: Reports: Chicken Pox, Influenza, Measles, MRSA, Pertussis (Whooping Cough), Shingles, Other (See Below) Other Infectious Disease History: MRSA in knee in 2013, DCed precautions before discharge after being there 1 1/2 months - Past Surgical History Head Surgeries/Procedures: Reports: None HEENT Surgical History: Reports: Adenoidectomy, Cataract Surgery, Tonsillectomy Neurological Surgical History: Reports: Other (See Below) Musculoskeletal Surgical History: Reports: Knee Replacement Social & Family History - Family History Family Medical History: Noncontributory HEENT: Reports: None Cardiac: Reports: Heart Failure, Hypertension, [place] Respiratory: Reports: Asthma GI: Reports: None : Reports: None OBGYN: Reports: Musculoskeletal: Reports: Arthritis, Osteoarthritis Neurological: Reports: Migraines Psychiatric: Reports: None Endocrine/Metabolic: Reports: Diabetes, type II, Hyperparathyroidism Hematologic: Reports: None Immunologic: Reports: None Dermatologic: Reports: None Oncologic: Reports: Uterine - Tobacco Use Smoking Status *Q: Former Smoker Years of Tobacco use: 3 Packs/Tins Daily: 0.2 Used Tobacco, but Quit: Yes Month/Year Tobacco Last Used: . Second Hand Smoke Exposure: No - Caffeine Use Caffeine Use: Reports: Coffee, Soda Other Caffeine Use: a little - Recreational Drug Use Recreational Drug Use: No - Living Situation & Occupation Living situation: Reports: , with Spouse ED ROS GENERAL - Review of Systems Review Of Systems: See Below Constitutional: Reports: No Symptoms, Weakness, Fatigue, Decreased Appetite. Denies: Fever, Night Sweats, Diaphoresis HEENT: Reports: No Symptoms. Denies: Rhinitis Respiratory: Reports: No Symptoms, Other (frequent shallow breaths). Denies: Shortness of Breath, Wheezing, Cough Cardiovascular: Reports: No Symptoms. Denies: Chest Pain Endocrine: Reports: No Symptoms GI/Abdominal: Reports: Diarrhea, Decreased Appetite, Nausea. Denies: Abdominal Pain, Vomiting : Reports: No Symptoms Musculoskeletal: Reports: No Symptoms Skin: Reports: No Symptoms Neurological: Reports: No Symptoms. Denies: Confusion Psychiatric: Reports: No Symptoms Hematologic/Lymphatic: Reports: No Symptoms Immunologic: Reports: No Symptoms ED EXAM, GI/ABD - Physical Exam Exam: See Below Exam Limited By: No Limitations General Appearance: Alert, WD/WN, Other (weak, alert, conversant, good eye contact, lying supine on bed) Ears: Normal External Exam Nose: Normal Inspection, Normal Mucosa, No Blood Throat/Mouth: Normal Inspection, Normal Lips, Normal Voice, No Airway Compromise Head: Atraumatic, Normocephalic Neck: Normal Inspection, Supple, Non-Tender, Full Range of Motion. No: Lymphadenopathy (R), Lymphadenopathy (L) Respiratory/Chest: No Respiratory Distress, Lungs Clear, No Accessory Muscle Use , Chest Non-Tender, Other (fair AE, no rales, no wheezes, symmetric, no cough, tachypneic 28 ) Cardiovascular: Regular Rate, Rhythm, No Edema, No Gallop, No JVD, No Rub, Other (quiet precordium, 2/6 LILLIAN at LSB, 1+ DP pulse b/l). No: Gallop/S3, Gallop/S4 GI/Abdominal Exam: Normal Bowel Sounds, Soft, Non-Tender, No Distention, No Mass , Other (obese, soft, NT, ND) Back Exam: Normal Inspection, Full Range of Motion. No: CVA Tenderness (R), CVA Tenderness (L) Extremities: Normal Inspection, Normal Range of Motion, Non-Tender, No Pedal Edema, Normal Capillary Refill, Other (no edema, dec'd turgor x 4, old ecchymosis pretib b/l) Neurological: Alert, CN II-XII Intact, Normal Cognition, No Motor/Sensory Deficits Psychiatric: Normal Affect, Normal Mood. No: Anxious, Depressed Mood Skin Exam: Warm, Dry, Intact, Normal Color, No Rash Lymphatic: No Adenopathy Course - Vital Signs Last Recorded V/S: Last Vital Signs Temp 36.1 C 06/26/17 08:52 Pulse 66 06/26/17 08:52 Resp 18 06/26/17 08:52 BP 107/52 L 06/26/17 08:52 Pulse Ox 93 L 06/26/17 08:52 - Orders/Labs/Meds Orders: Active Orders 24 hr Category Date Time Status CDIFF TOXIN A+B GROUP [OP] Stat Lab 06/26/17 09:39 Ordered CULTURE BLOOD [BC] Urgent Lab 06/26/17 10:00 Received CULTURE BLOOD [BC] Urgent Lab 06/26/17 10:05 Received CULTURE URINE [RM] Stat Lab 06/26/17 11:26 Ordered LACTOFERRIN, FECAL BY LEIGH ANN Stat Lab 06/26/17 09:36 Ordered OCCULT BLOOD SCREEN [OP] Stat Lab 06/26/17 10:00 Results Sodium Chloride 0.9% [Normal Saline] 1,000 ml Med 06/26/17 09:45 Active IV ASDIRECTED Vancomycin 1,000 mg Med 06/26/17 11:30 Ordered Sodium Chloride 0.9% [Normal Saline] 250 ml IV ONETIME Blood Culture x2 Reflex Set [OM.PC] Urgent Oth 06/26/17 09:36 Ordered EKG 12 Lead [EK] Routine Ther 06/26/17 09:40 Ordered Medication Orders Sodium Chloride (Normal Saline) 1,000 mls @ 999 mls/hr IV ASDIRECTED ROQUE Last Admin: 06/26/17 10:25 Dose: 999 mls/hr Vancomycin HCl 1,000 mg/ (Sodium Chloride) 250 mls @ 167 mls/hr IV ONETIME ONE Stop: 06/26/17 12:59 Labs: Laboratory Tests 06/26/17 06/26/17 06/26/17 Range/Units 09:55 10:00 10:00 WBC 12.2 H (4.5-12.0) X10-3/uL RBC 5.58 H (3.23-5.20) x10(6)uL Hgb 13.0 D (11.5-15.5) g/dL Hct 41.3 D (30.0-51.3) % MCV 74.0 L (80-96) fL MCH 23.4 L (27.7-33.6) pg MCHC 31.6 L (32.2-35.4) g/dL RDW 18.4 H (11.5-15.5) % Plt Count 241 (125-369) X10(3)uL MPV 8.3 (7.4-10.4) fL Add Manual Diff Yes Neutrophils % (Manual) 81 (46-82) % Band Neutrophils % 1 (0-6) % Lymphocytes % (Manual) 12 L (13-37) % Monocytes % (Manual) 5 (4-12) % Eosinophils % (Manual) 1 (0-5) % Anisocytosis Moderate H Microcytosis Few D-Dimer, Quantitative (100-400) ng/mL Sodium 141 (135-145) mmol/L Potassium 3.0 L (3.5-5.3) mmol/L Chloride 103 (100-110) mmol/L Carbon Dioxide 20 L (21-32) mmol/L BUN 41 H (7-18) mg/dL Creatinine 2.5 H* (0.55-1.02) mg/dL Est Cr Clr Drug Dosing 15.59 mL/min Estimated GFR (MDRD) 19 L (>60) BUN/Creatinine Ratio 16.4 (9-20) Glucose 129 H (80-116) mg/dL Lactic Acid (0.4-2.2) mmol/L Calcium 10.1 (8.6-10.2) mg/dL Total Bilirubin 0.3 (0.1-1.3) mg/dL AST 26 H (5-25) IU/L ALT 37 H (12-36) U/L Alkaline Phosphatase 78 (56-112) IU/L Troponin I (<0.017-0.056) ng/mL C-Reactive Protein (0.5-0.9) mg/dL NT-Pro-B Natriuret Pep (<=450) pg/mL Total Protein 8.5 H (6.0-8.0) g/dL Albumin 3.8 (3.2-4.6) g/dL Globulin 4.7 g/dL Albumin/Globulin Ratio 0.8 Urine Color Cancelled Urine Appearance Cancelled Urine pH Cancelled Ur Specific [place] Cancelled Urine Protein Cancelled Urine Glucose (UA) Cancelled Urine Ketones Cancelled Urine Occult Blood Cancelled Urine Nitrite Cancelled Urine Bilirubin Cancelled Urine Urobilinogen Cancelled Ur Leukocyte Esterase Cancelled Urine RBC Cancelled Urine WBC Cancelled Ur Epithelial Cells Cancelled Ur Squamous Epith Cells Cancelled Ur Renal Epithelial Cell Cancelled Calcium Oxalate Crystal Cancelled Uric Acid Crystals Cancelled Triple Phos Crystals Cancelled Other Crystals Cancelled Amorphous Sediment Cancelled Urine Bacteria Cancelled Hyaline Casts Cancelled Fine Granular Casts Cancelled Coarse Granular Casts Cancelled Waxy Casts Cancelled RBC Casts Cancelled WBC Casts Cancelled Urine Mucus Cancelled Urine Trichomonas Cancelled Urine Yeast Cancelled Urine Sperm Cancelled Ur Oval Fat Bodies Cancelled Urinalysis Comment Cancelled 06/26/17 06/26/17 06/26/17 Range/Units 10:00 10:00 10:00 WBC (4.5-12.0) X10-3/uL RBC (3.23-5.20) x10(6)uL Hgb (11.5-15.5) g/dL Hct (30.0-51.3) % MCV (80-96) fL MCH (27.7-33.6) pg MCHC (32.2-35.4) g/dL RDW (11.5-15.5) % Plt Count (125-369) X10(3)uL MPV (7.4-10.4) fL Add Manual Diff Neutrophils % (Manual) (46-82) % Band Neutrophils % (0-6) % Lymphocytes % (Manual) (13-37) % Monocytes % (Manual) (4-12) % Eosinophils % (Manual) (0-5) % Anisocytosis Microcytosis D-Dimer, Quantitative (100-400) ng/mL Sodium (135-145) mmol/L Potassium (3.5-5.3) mmol/L Chloride (100-110) mmol/L Carbon Dioxide (21-32) mmol/L BUN (7-18) mg/dL Creatinine (0.55-1.02) mg/dL Est Cr Clr Drug Dosing mL/min Estimated GFR (MDRD) (>60) BUN/Creatinine Ratio (9-20) Glucose (80-116) mg/dL Lactic Acid 2.9 H (0.4-2.2) mmol/L Calcium (8.6-10.2) mg/dL Total Bilirubin (0.1-1.3) mg/dL AST (5-25) IU/L ALT (12-36) U/L Alkaline Phosphatase (56-112) IU/L Troponin I < 0.017 L (<0.017-0.056) ng/mL C-Reactive Protein 9.6 H* (0.5-0.9) mg/dL NT-Pro-B Natriuret Pep 6902 H* (<=450) pg/mL Total Protein (6.0-8.0) g/dL Albumin (3.2-4.6) g/dL Globulin g/dL Albumin/Globulin Ratio Urine Color Urine Appearance Urine pH Ur Specific [place] Urine Protein Urine Glucose (UA) Urine Ketones Urine Occult Blood Urine Nitrite Urine Bilirubin Urine Urobilinogen Ur Leukocyte Esterase Urine RBC Urine WBC Ur Epithelial Cells Ur Squamous Epith Cells Ur Renal Epithelial Cell Calcium Oxalate Crystal Uric Acid Crystals Triple Phos Crystals Other Crystals Amorphous Sediment Urine Bacteria Hyaline Casts Fine Granular Casts Coarse Granular Casts Waxy Casts RBC Casts WBC Casts Urine Mucus Urine Trichomonas Urine Yeast Urine Sperm Ur Oval Fat Bodies Urinalysis Comment 06/26/17 06/26/17 Range/Units 10:00 10:28 WBC (4.5-12.0) X10-3/uL RBC (3.23-5.20) x10(6)uL Hgb (11.5-15.5) g/dL Hct (30.0-51.3) % MCV (80-96) fL MCH (27.7-33.6) pg MCHC (32.2-35.4) g/dL RDW (11.5-15.5) % Plt Count (125-369) X10(3)uL MPV (7.4-10.4) fL Add Manual Diff Neutrophils % (Manual) (46-82) % Band Neutrophils % (0-6) % Lymphocytes % (Manual) (13-37) % Monocytes % (Manual) (4-12) % Eosinophils % (Manual) (0-5) % Anisocytosis Microcytosis D-Dimer, Quantitative 2030 H (100-400) ng/mL Sodium (135-145) mmol/L Potassium (3.5-5.3) mmol/L Chloride (100-110) mmol/L Carbon Dioxide (21-32) mmol/L BUN (7-18) mg/dL Creatinine (0.55-1.02) mg/dL Est Cr Clr Drug Dosing mL/min Estimated GFR (MDRD) (>60) BUN/Creatinine Ratio (9-20) Glucose (80-116) mg/dL Lactic Acid (0.4-2.2) mmol/L Calcium (8.6-10.2) mg/dL Total Bilirubin (0.1-1.3) mg/dL AST (5-25) IU/L ALT (12-36) U/L Alkaline Phosphatase (56-112) IU/L Troponin I (<0.017-0.056) ng/mL C-Reactive Protein (0.5-0.9) mg/dL NT-Pro-B Natriuret Pep (<=450) pg/mL Total Protein (6.0-8.0) g/dL Albumin (3.2-4.6) g/dL Globulin g/dL Albumin/Globulin Ratio Urine Color Yellow Urine Appearance Cloudy Urine pH 6.0 Ur Specific [place] 1.010 Urine Protein Negative Urine Glucose (UA) Normal Urine Ketones Negative Urine Occult Blood Moderate H Urine Nitrite Negative Urine Bilirubin Negative Urine Urobilinogen Normal Ur Leukocyte Esterase Large H Urine RBC Urine WBC Packed H Ur Epithelial Cells Ur Squamous Epith Cells Ur Renal Epithelial Cell Calcium Oxalate Crystal Uric Acid Crystals Triple Phos Crystals Other Crystals Amorphous Sediment Urine Bacteria Hyaline Casts Fine Granular Casts Coarse Granular Casts Waxy Casts RBC Casts WBC Casts Urine Mucus Urine Trichomonas Urine Yeast Urine Sperm Ur Oval Fat Bodies Urinalysis Comment Meds: Medications Generic Name Dose Route Start Last Admin Trade Name Freq PRN Reason Stop Dose Admin Sodium Chloride 1,000 mls @ 999 mls/hr 06/26/17 09:45 06/26/17 10:25 Normal Saline IV 999 mls/hr ASDIRECTED ROQUE Administration Vancomycin HCl 1,000 mg/ 250 mls @ 167 mls/hr 06/26/17 11:30 Sodium Chloride IV 06/26/17 12:59 ONETIME ONE Discontinued Medications Generic Name Dose Route Start Last Admin Trade Name Freq PRN Reason Stop Dose Admin Tobramycin 1,300 mg/ Sodium 100 mls @ 100 mls/hr 06/26/17 11:31 Chloride IV 06/26/17 11:32 ONETIME ONE Potassium Chloride 40 meq 06/26/17 11:42 Klor-Con M20 PO 06/26/17 11:43 ONETIME ONE - Re-Assessments/Exams Free Text/Narrative Re-Assessment/Exam: 06/26/17 11:32 pt with severe hypotensive episode x 4 when an infected knee was removed at [facility] 4[facility] ago, her doctors checked her records and think it was cephalexin causing the hypotension says she is very sensitive to many meds, had been on Eliquis for afib but had multiple side effects including bleeding in the urine BP 91/46 after 1st liter NS, 2nd liter hanging went home for heated CPAP mask which she uses at night no h/o FL, h/o afib and HF CxR shows no new infiltrate UA is packed with WBC, lab is examining urine again to see if there is a predominance of rods or cocci, UC pending, BC x 2 pending BUN/creat 41/2.5 now, up from baseline 21/0.6 from one yr ago K low at 3.0 lactic acid 2.9 c/w dehydration d-dimer 2030 is unlikely of clinical sig as CRP 9.6 and this is likely inflammatory, altho she is relatively immobile she is unlikely to have a DVT/PE , one option will be to repeat d-dimer tomorrow when better hydrated and consider a chest CTA if necessary when creat less than 1.5 pt appears to be resistant to levo, suggesting possible Enterococcus, will cover with vanco (which will also cover possible C diff) as well as tobra for gram neg Departure - Departure Time of Disposition: 11:49 Disposition: DC/Tfer to Other 70 Condition: Good Clinical Impression: Urinary tract infection, Hypotension, Elevated lactic acid level, Hypokalemia, Elevated brain natriuretic peptide (BNP) level, Elevated C-reactive protein (CRP ), Elevated d-dimer, PATRICIA (obstructive sleep apnea), Immunosuppressed status, Urinary incontinence, Diarrhea, Moderate dehydration - Discharge Information Referrals: Omar Plunkett MD [Primary Care Provider] - Forms: ED Department Discharge - My Orders Last 24 Hours: My Active Orders 06/26/17 09:36 LACTOFERRIN, FECAL BY LEIGH ANN Stat Blood Culture x2 Reflex Set [OM.PC] Urgent 06/26/17 09:39 CDIFF TOXIN A+B GROUP [OP] Stat 06/26/17 09:40 EKG 12 Lead [EK] Routine 06/26/17 09:45 Sodium Chloride 0.9% [Normal Saline] 1,000 ml IV ASDIRECTED 06/26/17 10:00 CULTURE BLOOD [BC] Urgent OCCULT BLOOD SCREEN [OP] Stat 06/26/17 10:05 CULTURE BLOOD [BC] Urgent 06/26/17 11:26 CULTURE URINE [RM] Stat 06/26/17 11:30 Vancomycin 1,000 mg Sodium Chloride 0.9% [Normal Saline] 250 ml IV ONETIME - Assessment/Plan Last 24 Hours: My Active Orders 06/26/17 09:36 LACTOFERRIN, FECAL BY LEIGH ANN Stat Blood Culture x2 Reflex Set [OM.PC] Urgent 06/26/17 09:39 CDIFF TOXIN A+B GROUP [OP] Stat 06/26/17 09:40 EKG 12 Lead [EK] Routine 06/26/17 09:45 Sodium Chloride 0.9% [Normal Saline] 1,000 ml IV ASDIRECTED 06/26/17 10:00 CULTURE BLOOD [BC] Urgent OCCULT BLOOD SCREEN [OP] Stat 06/26/17 10:05 CULTURE BLOOD [BC] Urgent 06/26/17 11:26 CULTURE URINE [RM] Stat 06/26/17 11:30 Vancomycin 1,000 mg Sodium Chloride 0.9% [Normal Saline] 250 ml IV ONETIME
[2017-06-26] MEDS: Sodium Chloride 0.9% 1,000 ML IV SCH ×5 (10:25→15:30)
--- NOTE | 2017-06-26 11:09 | CR ---
INDICATION: Weak, shortness of breath. CHEST: AP portable upright view of the chest, 06/26/2017, was compared with and 05/05/2016, again revealing extensive Ramirez maria del carmen placement in the thoracolumbar spine. Evidence of exogenous obesity is also again noted. The heart is enlarged. The aorta is tortuous with calcification in the arch. No definite evidence of CHF is seen. What appears to be a prominent epicardial fat pad is noted on the left. It is difficult to exclude active disease at the left lung base due to the overlying heart and epicardial fat pad. The right lung and pleural space were unremarkable. Visualized lung on the left was unremarkable. Degenerative changes are noted at the shoulder joints additionally. Somewhat flattened diaphragm leaf and an appearance of hyperaeration suggest the possibility of COPD. IMPRESSION: No definite acute process - multiple findings as noted above. MTDD
[2017-06-26] MEDS ORDERED: TOBRAMYCIN IV ONE (11:31)
[2017-06-26] MEDS ORDERED: SODIUM CHLORIDE 0.9% IV ONE (11:31)
[2017-06-26] MEDS ORDERED: Potassium Chloride 20 MEQ Tab.ER PO ONE (11:42)
[2017-06-26] MEDS ORDERED: Acetaminophen 650 MG Supp RECTAL PRN (12:28)
[2017-06-26] MEDS ORDERED: Morphine 2 MG/ML Syringe IVPUSH PRN (12:28)
[2017-06-26] MEDS ORDERED: Acetaminophen 325 MG Tab PO PRN (12:28)
[2017-06-26] MEDS ORDERED: Docusate Sodium 100 MG Cap PO PRN (12:28)
[2017-06-26] MEDS ORDERED: Hydrocortisone Sodium Succinate 100 MG/2 ML SDV IVPUSH SCH (13:00)
--- NOTE | 2017-06-26 14:27 | PCM.HP ---
H&P History of Present Illness - General Date of Service: 06/26/17 Admit Problem/Dx: Admission Diagnosis/Problem Admission Diagnosis/Problem Severe sepsis Source of Information: Patient, Old Records, Provider History Limitations: Reports: Altered Mental Status - History of Present Illness Initial Comments - Free Text/Narative: The patient is a 76-year-old female with multiple medical problems and steroid dependent rheumatoid arthritis, history of VRE, C. difficile, MRSA, who presents with 24 hours of loose stools and weakness. The patient a couple of days ago started to develop UTI symptoms at home and her had some leftover Levaquin which she gave her. She took a dose on Sunday and a dose on Sunday. Yesterday afternoon she started to develop severe loose stools and weakness. The stools were copious and watery. After stooling all night he finally brought her into the emergency room this morning. She had blood work done and mini catheter which showed pus in the urine and I was asked to admit the patient for UTI. The patient and her deny fevers, chills, sweats at home. She's been very confused and lethargic at home. Labs on admission show C. difficile pending, a white count of 12.2, creatinine up to 2.5 from a baseline of 0.8, CRP 9.6, bicarbonate of 20, potassium 3.0, sodium 141, BNP 6900, lactic acid 2.9. AST and ALTs were both slightly elevated at 26 and 37 respectively. The patient when she initially came had a systolic blood pressure 107, but in the emergency department this gradually drifted down into the low 80s. When I went to see the patient, the patient's was gone to his home to get supplies and there was no decision maker available. At that point given the patient's hypotension I felt it would be most prudent to transfer the patient to the ICU and initiate treatment for severe sepsis secondary to urinary tract infection and multiple organ dysfunction rather than waiting to discuss disposition with him. The patient had received vancomycin and tobramycin initially in the emergency department. Because of her steroid dependency, I immediately ordered hydrocortisone to be given IV which did not change her pressures as well as 2 large bore IVs and aggressive normal saline fluid resuscitation. Unfortunately, was very difficult to get IV access and the patient and she has a small 20-gauge in her right arm and we were able to get with anesthesia's help an IV 18-gauge in the left foot. The arrived, he and his son and I discussed the patient's severe sepsis diagnosis and the fact that I believe that she is in septic shock with multiorgan dysfunction. A Barrientos catheter had been placed and the patient had had no urine output. Pressures were still in the 100 range after almost 4 L of normal saline. Discussed the 's wishes. He wants everything done up to the point of but if the patient get so sick that she dies in spite of aggressive medical therapy, he would not want CPR done. He would want intubation if the patient requires in order to not pass away. Past medical history: Reviewed in [facility]MR. Of note the patient has severe rheumatoid arthritis with significant joint involvement and multiple artificial joints. 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 Social history: Lives [place] in [place]. She drinks one drink a week, nonsmoker and quit in the 70s. Family history: Noncontributory See the rest of the note below for further details as to the patient's hospital course. After speaking with the family I contacted [address] and spoke with Dr. Stark who accepted the patient in transfer at 1530. - Related Data Allergies/Adverse Reactions: Allergies Allergy/AdvReac Type Severity Reaction Status Date / Time cephalexin Allergy Confusion Verified 06/26/17 09:08 clonidine Allergy Nausea Verified 06/26/17 09:08 diclofenac [From Voltaren] Allergy Paralysis Verified 06/26/17 09:08 naproxen [From Naprosyn] Allergy Paralysis Verified 06/26/17 09:08 Home Medications: Home Meds ALPRAZolam [Xanax] 0.25 mg PO BID PRN 05/05/16 [History] Albuterol [Ventolin HFA] 2 puff IH Q4H PRN 05/05/16 [History] Diazepam [Valium] 5 mg PO BEDTIME 05/05/16 [History] Hydroxychloroquine Sulfate [Plaquenil] 200 mg PO BEDTIME 05/05/16 [History] Isosorbide Mononitrate [Imdur] 60 mg PO DAILY@1000 05/05/16 [History] Lisinopril 40 mg PO DAILY 05/05/16 [History] Multivit-Min/Iron Fum/Folic AC [Erawn-Bxnysaa-Machxftv Tablet] 1 tab PO DAILY@ 1000 05/05/16 [History] Omeprazole Magnesium [Prilosec Otc] 20 mg PO DAILY 05/05/16 [History] Sertraline [Zoloft] 25 mg PO DAILY 05/05/16 [History] rOPINIRole [Requip] 0.5 mg PO BEDTIME 05/05/16 [History] Aspirin [Halfprin] 81 mg PO DAILY #90 tab.ec 05/07/16 [Rx] Loperamide [Imodium] 2 mg PO Q4H PRN #60 cap 05/07/16 [Rx] amLODIPine [Norvasc] 10 mg PO BEDTIME #90 tab 05/07/16 [Rx] Ca/D3/Mag#11/Zinc/Network Security Consultant/Preston/Bor [Caltrate 600+D Plus Tablet] 1 tab PO DAILY@12 [History] Hydrochlorothiazide 25 mg PO DAILY 04/08/17 [History] Hydrocodone/Acetaminophen [Hydrocodon-Acetaminophen 5-325] 1 - 2 tab PO Q4HR PRN 04/08/17 [History] Hydrocortisone [Procto-Med Hc] 1 applic RECTAL BID PRN 04/08/17 [History] Trolamine Salicylate [Aspercreme] 1 applic TP BID 04/08/17 [History] Albuterol/Ipratropium [DuoNeb 3.0-0.5 MG/3 ML] 3 ml INH Q4HR PRN #1 box [Rx] Ascorbic Acid [Vitamin C] 500 mg PO DAILY 04/10/17 [History] Diclofenac ([place]) 1 tab PO BID 04/10/17 [History] Nystatin [Nystop] 1 applic TOP ASDIRECTED 04/10/17 [History] Polyvinyl Alcohol/Povidone [Artificial Tears Drops] 1 drop EYEBOTH Q4H PRN 04/10 [History] predniSONE [Prednisone] 5 mg PO DAILY #60 04/10/17 [Rx] Levofloxacin [Levofloxacin] 500 mg PO DAILY 06/26/17 [History] Past Medical History HEENT History: Reports: Impaired Vision, Other (See Below) Other HEENT History: 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, 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 Cardiovascular History: Reports: Afib, High Cholesterol, Hypertension, SOB on Exertion Respiratory History: Reports: Asthma, Sleep Apnea, SOB, Other (See Below) Other Respiratory History: wears c pap at night Gastrointestinal History: Reports: Hemorrhoids Genitourinary History: Reports: UTI, Recurrent REAL ESTATE APPRAISER History: Reports: Other OB/BYN History: 3 children Musculoskeletal History: Reports: Arthritis, Osteoarthritis, RA, Other (See Below) Other Musculoskeletal History: rods in back neck all the way down her back Neurological History: Reports: Vertigo Psychiatric History: Reports: Anxiety, Depression Endocrine/Metabolic History: Reports: Osteoporosis Hematologic History: Reports: Blood Transfusion(s) Immunologic History: Reports: None Oncologic (Cancer) History: Reports: None Dermatologic History: Reports: None - Infectious Disease History Infectious Disease History: Reports: Chicken Pox, Influenza, Measles, MRSA, Pertussis (Whooping Cough), Shingles, Other (See Below) Other Infectious Disease History: MRSA in knee in 2013, DCed precautions before discharge after being there 1 1/2 months - Past Surgical History Head Surgeries/Procedures: Reports: None HEENT Surgical History: Reports: Adenoidectomy, Cataract Surgery, Tonsillectomy Neurological Surgical History: Reports: Other (See Below) Musculoskeletal Surgical History: Reports: Knee Replacement Social & Family History - Family History Family Medical History: Noncontributory HEENT: Reports: None Cardiac: Reports: Heart Failure, Hypertension, [place] Respiratory: Reports: Asthma GI: Reports: None : Reports: None OBGYN: Reports: Musculoskeletal: Reports: Arthritis, Osteoarthritis Neurological: Reports: Migraines Psychiatric: Reports: None Endocrine/Metabolic: Reports: Diabetes, type II, Hyperparathyroidism Hematologic: Reports: None Immunologic: Reports: None Dermatologic: Reports: None Oncologic: Reports: Uterine - Tobacco Use Smoking Status *Q: Former Smoker Years of Tobacco use: 3 Packs/Tins Daily: 0.2 Used Tobacco, but Quit: Yes Month/Year Tobacco Last Used: . Second Hand Smoke Exposure: No - Caffeine Use Caffeine Use: Reports: Coffee, Soda Other Caffeine Use: a little - Recreational Drug Use Recreational Drug Use: No - Living Situation & Occupation Living situation: Reports: , with Spouse H&P Review of Systems - Review of Systems: Review Of Systems: ROS reveals no pertinent complaints other than HPI. (Review of systems difficult to obtain because the patient denies any symptomatology. However she is lethargic and minimally verbal.) Exam - Exam Exam: See Below - Vital Signs Vital Signs: Last Vital Signs Temp 36.1 C 06/26/17 08:52 Pulse 55 L 06/26/17 12:30 Resp 18 06/26/17 12:30 BP 92/46 L 06/26/17 12:30 Pulse Ox 91 L 06/26/17 12:30 Weight: 88.451 kg - Exam Quality Assessment: Skin Breakdown (Bruised throughout the upper and lower extremities.) General: Alert, Oriented HEENT: PERRLA, Conjunctiva Clear, Posterior Pharynx Clear (dry mucous membranes , coated tongue.) Neck: Supple, Trachea Midline Lungs: Clear to Auscultation (no wheezes, rhonchi or rales but very diminished throughout.), Decreased Breath Sounds Cardiovascular: Regular Rate, Irregular Rhythm GI/Abdominal Exam: Soft, Non-Tender, No Mass, Abnormal Bowel Sounds (hypoactive bowel sounds) Rectal (Female) Exam: Other (erythema but no open skin.) Back Exam: Normal Inspection Extremities: No Pedal Edema (legs are bruised with mild contractures. Patient nonambulatory. ) Skin: Other (bruising throughout. Skin fragile with tenting.) Neuro Extensive - Mental Status: Disorientation to Time (Oriented to person, place and month and year. ) - Patient Data Result Diagrams: 06/26/17 10:00 06/26/17 10:00 *Q Meaningful Use (ADM) - VTE *Q VTE Criteria *Q: - Stroke *Q Stroke Criteria *Q: - AMI *Q AMI Criteria *Q: - Problem List (1) Severe sepsis with acute organ dysfunction SNOMED Code(s): 91001096 ICD Code: A41.9 - SEPSIS, UNSPECIFIED ORGANISM; R65.20 - SEVERE SEPSIS WITHOUT SEPTIC SHOCK Status: Acute Current Visit: Yes Problem Details: Patient has not responded adequately to aggressive fluid bolus. She has now received vancomycin, tobramycin, meropenem, hydrocortisone, potassium, 4 L normal saline bolus, Levophed was started. The patient is maintaining her respiratory status well but is more comfortable on CPAP at she's lying down because she gets short of breath at baseline with flat. She was started on her CPAP and this was more comfortable for her. Was requiring 1 L oxygen to maintain sats greater than 90%. Pressures just above 100. (2) Steroid dependent SNOMED Code(s): 59180567 ICD Code: [id number] - Status: Acute Current Visit: Yes (3) LUIZ (acute kidney injury) SNOMED Code(s): 01391362 ICD Code: N17.9 - ACUTE KIDNEY FAILURE, UNSPECIFIED Status: Acute Current Visit: Yes Problem Details: No urine output as of time of transfer. (4) Elevated liver enzymes SNOMED Code(s): 337977803 ICD Code: R74.8 - ABNORMAL LEVELS OF OTHER SERUM ENZYMES Status: Acute Current Visit: Yes Problem Details: likely secondary to sepsis and hypotension. Problem List Initiated/Reviewed/Updated: Yes Orders Last 24hrs: Active Orders 24 hr Category Date Time Status Patient Status [ADT] Routine ADT 06/26/17 12:28 Active Cardiac Monitoring [RC] CONTINUOUS Care 06/26/17 12:30 Active Height and Weight [RC] DAILY Care 06/26/17 12:28 Active Intake and Output [RC] QSHIFT Care 06/26/17 12:30 Active Notify Provider Vital Signs [RC] ASDIRECTED Care 06/26/17 12:30 Active Oxygen Therapy [RC] PRN Care 06/26/17 12:28 Active Up With Assistance [RC] ASDIRECTED Care 06/26/17 12:28 Active Urinary Catheter Assessment [RC] QSHIFT Care 06/26/17 12:28 Active VTE/DVT Education [RC] Per Unit Routine Care 06/26/17 12:28 Active Vital Signs [RC] Q4H Care 06/26/17 12:28 Active Clear Liquid Diet [DIET] Diet 06/26/17 Breakfast Active BASIC METABOLIC PANEL,BMP [CHEM] AM Lab 06/27/17 05:11 Ordered CBC WITH AUTO DIFF [HEME] AM Lab 06/27/17 05:11 Ordered Acetaminophen [Tylenol] Med 06/26/17 12:28 Active 650 mg PO Q4H PRN Acetaminophen [Tylenol] Med 06/26/17 12:28 Active 650 mg RECTAL Q4H PRN Docusate Sodium [Colace] Med 06/26/17 12:28 Active 100 mg PO BID PRN Hydrocortisone Sod Succinate [Solu-CORTEF] Med 06/26/17 13:00 Active 100 mg IVPUSH Q6H Morphine Med 06/26/17 12:28 Active 2 mg IVPUSH Q2H PRN Sodium Chloride 0.9% [Normal Saline] 1,000 ml Med 06/26/17 11:30 Active IV ASDIRECTED Tobramycin [Nebcin] 100 mg Med 06/26/17 14:00 Active Sodium Chloride 0.9% [Normal Saline] 100 ml IV ONETIME Sequential Compression Device [OM.PC] Per Unit Routine Oth 06/26/17 12:30 Ordered Medication Orders Acetaminophen (Tylenol) 650 mg PO Q4H PRN PRN Reason: Pain (Mild 1-3)/fever Acetaminophen (Tylenol) 650 mg RECTAL Q4H PRN PRN Reason: Mild pain/fever Docusate Sodium (Colace) 100 mg PO BID PRN PRN Reason: Constipation Hydrocortisone Sodium Succinate (Solu-Cortef) 100 mg IVPUSH Q6H [facility] Last Admin: 06/26/17 13:07 Dose: 100 mg Sodium Chloride (Normal Saline) 1,000 mls @ 999 mls/hr IV ASDIRECTED ROQUE Last Admin: 06/26/17 11:40 Dose: 999 mls/hr Infusion: 06/26/17 11:26 Dose: 999 mls/hr Admin: 06/26/17 10:25 Dose: 999 mls/hr Tobramycin 100 mg/ Sodium (Chloride) 102.5 mls @ 102.5 mls/hr IV ONETIME ONE Stop: 06/26/17 14:59 Sodium Chloride (Normal Saline) 1,000 mls @ 999 mls/hr IV ASDIRECTED ROQUE Morphine Sulfate (Morphine) 2 mg IVPUSH Q2H PRN PRN Reason: Pain (severe 7-10) Assessment/Plan Comment:: Discussed CODE STATUS at length with the patient's and son. The patient' s feels she would want full medical care up to the point of . However if she got so sick that she , in spite of aggressive medical care, he wouldn't want her to have CPR to break her ribs and to have her suffer more likely dying again. This patient is a DNR yes intubation. 125 minutes was spent in Critical Care time with the patient managing her septic shock, documenting, arranging transfer and counseling the family.
[2017-06-26] MEDS ORDERED: Potassium Chloride 20 MEQ in Premix Bag 1 BAG IV ONE (14:50)
[2017-06-26] MEDS ORDERED: Meropenem 1 GM in Sodium Chloride 0.9% 100 ML IV SCH (15:00)
[2017-06-26] MEDS ORDERED: Meropenem 1 GM SDV IV SCH (15:30)
[2017-06-26] MEDS ORDERED: STERILE IV SCH (15:30)
[2017-06-26] MEDS ORDERED: MEROPENEM IV SCH (15:30)
[2017-06-26] MEDS ORDERED: WATER FOR INJECTION IV SCH (15:30)
[2017-06-26] MEDS ORDERED: Norepinephrine 4 MG in Dextrose 5% in Water 246 ML IV SCH ×2 (15:45)
[2017-06-26 20:00] VITALS: BP 109/54
== END 2017-06-26 16:15 | DRG 871 ==
LOC: FB.ED 08:52 → FB.MS 11:48 → FB.ICU 11:48 → UNDOADMIN 11:48 → FB.ICU 12:33 → UNDODISIN 16:15
PROVIDERS: ADMIT Family Medicine; ATTEND Family Medicine
DX: A41.9 Sepsis, unspecified organism (principal); R65.21 Severe sepsis with septic shock; I10 Essential (primary) hypertension; N39.0 Urinary tract infection, site not specified; N17.9 Acute kidney failure, unspecified; I50.30 Unspecified diastolic (congestive) heart failure; E86.0 Dehydration; I95.9 Hypotension, unspecified; E87.6 Hypokalemia; R53.1 Weakness; R19.7 Diarrhea, unspecified; R79.82 Elevated C-reactive protein (CRP); R79.1 Abnormal coagulation profile; Z87.891 Personal history of nicotine dependence; I48.91 Unspecified atrial fibrillation; M06.9 Rheumatoid arthritis, unspecified; R74.8 Abnormal levels of other serum enzymes; Z79.52 Long term (current) use of systemic steroids; G47.33 Obstructive sleep apnea (adult) (pediatric); J44.9 Chronic obstructive pulmonary disease, unspecified; Z99.89 Dependence on other enabling machines and devices; Z66 Do not resuscitate; E78.5 Hyperlipidemia, unspecified; Z87.01 Personal history of pneumonia (recurrent); Z86.14 Personal history of Methicillin resistant Staphylococcus aureus infection; M19.90 Unspecified osteoarthritis, unspecified site; Z87.440 Personal history of urinary (tract) infections; H54.7 Unspecified visual loss; Z96.659 Presence of unspecified artificial knee joint; Z88.1 Allergy status to other antibiotic agents; Z88.8 Allergy status to other drugs, medicaments and biological substances; Z79.82 Long term (current) use of aspirin; I11.0 Hypertensive heart disease with heart failure
CPT/HCPCS: 71045; 80053; 81001; 82270; 83605; 83880; 84443; 84484; 85025; 85379; 86140; 87040 ×2; 87086; 93005; 96361; 99285; J7040 ×2; 36415; 96365; J1720; J2185; J3260; J3370; J3480; J7030; J7050; J7060